=== PATIENT | male | born 1965 | race Caucasian/White ===

== ENCOUNTER 2020-06-27 12:49 | Outpatient (REF) | payer BC, SELFPAY ==
--- NOTE | 2020-06-27 | US_ITS ---
EXAMINATION: US RETROPERITONEAL LIMITED (RENAL ONLY) CLINICAL INFORMATION: Calculus of kidney. COMPARISON: Renal ultrasound 06/30/2019 and 12/22/2018. X-ray abdomen KUB 12/22/2018 and 04/18/2016. TECHNIQUE: Real-time imaging of the kidneys. FINDINGS: RIGHT KIDNEY: 11.5 x 2.5 x 6.2 cm (SAG x AP x TRV). The kidney is normal in size, contour, and echogenicity. Renal cortical thickness is normal. There is a 2 mm echogenic density with twinkle artifact in the lower pole suggestive of a stone. No focal parenchymal lesions or hydronephrosis. LEFT KIDNEY: 13.3 x 5.4 x 6.1 cm (SAG x AP x TRV). The kidney is normal in size, contour, and echogenicity. Renal cortical thickness is normal. There are 3 echogenic densities with twinkle artifact measuring 2 mm in the upper and lower pole suggestive of stones No focal parenchymal lesions or hydronephrosis. US/US renal BI IMPRESSION: Small bilateral renal stones.
== END 2020-06-27 12:50 | disposition home or self-care (01) ==
LOC: HO.HMGCX 12:49
PROVIDERS: PCP Pediatrics; Visit Provider Urology
DX: N20.0 Calculus of kidney (principal)
CPT/HCPCS: 76775

== ENCOUNTER → 2020-08-18 13:38 | Outpatient (BNVA) | payer BC, SELFPAY | PROVIDERS: PCP Pediatrics; Visit Provider Urology | DX: Z76.89 Persons encountering health services in other specified circumstances (principal) ==

== ENCOUNTER 2022-01-15 09:36 | Outpatient (REF) | payer BC, SELFPAY ==
--- NOTE | ~2022-01-15 | US_ITS ---
EXAMINATION: US RETROPERITONEAL LIMITED (RENAL ONLY) CLINICAL INFORMATION: Calculus of kidney. COMPARISON: US retroperitoneal limited (renal only) 06/27/2020 and 06/30/2019. XR abdomen KUB 12/22/2018 and 04/18/2016. TECHNIQUE: Real-time imaging of the kidneys. FINDINGS: RIGHT KIDNEY: 11.6 x 5.1 x 6.3 cm (SAG x AP x TRV). The kidney is normal in size, contour, and echogenicity. Renal cortical thickness is normal. There is a 3 mm stone in the midpole. No focal parenchymal lesions or hydronephrosis. LEFT KIDNEY: 12.2 x 5.2 x 5.6 cm (SAG x AP x TRV). The kidney is normal in size, contour, and echogenicity. Renal cortical thickness is normal. There are 3 stones measuring 2 to 3 mm in the upper and lower pole. There is a small 7 mm cyst in the midpole. No hydronephrosis. US/US renal BI IMPRESSION: Bilateral renal stones, left greater than right. Small left renal cyst.
== END 2022-01-15 09:37 | disposition home or self-care (01) ==
LOC: HO.US 09:36
PROVIDERS: Visit Provider Urology
DX: N20.0 Calculus of kidney (principal)
CPT/HCPCS: 76775

== ENCOUNTER → 2022-01-31 14:21 | Outpatient (BNVA) | payer BC, SELFPAY | PROVIDERS: Visit Provider Urology | DX: N20.0 Calculus of kidney (principal) | CPT/HCPCS: 51798 ==

== ENCOUNTER 2022-05-23 10:07 | Outpatient (REF) | payer BC, SELFPAY ==
--- NOTE | ~2022-05-23 | US_ITS ---
EXAMINATION: US RETROPERITONEAL LIMITED (RENAL ONLY) CLINICAL INFORMATION: Calculus of kidney. COMPARISON: Renal ultrasound 01/15/2022 and 06/27/2020. X-ray KUB 12/22/2018 and 04/18/2016. TECHNIQUE: Real-time imaging of the kidneys. FINDINGS: RIGHT KIDNEY: 10.9 x 4.8 x 5.6 cm (SAG x AP x TRV). The kidney is normal in size, contour, and echogenicity. Renal cortical thickness is normal. There are 2 stones measuring 4 mm and 3 x 6 mm in the upper pole. No focal parenchymal lesions or hydronephrosis. LEFT KIDNEY: 12.0 x 5.9 x 4.7 cm (SAG x AP x TRV). The kidney is normal in size, contour, and echogenicity. Renal cortical thickness is normal. There are 3 stones measuring 5 x 7 mm in the upper pole and 3 x 4 and 5 mm in the midpole. No focal parenchymal lesions or hydronephrosis. US/US renal BI IMPRESSION: Bilateral renal stones.
== END 2022-05-23 10:08 | disposition home or self-care (01) ==
LOC: HO.US 10:07
PROVIDERS: Visit Provider Urology
DX: N20.0 Calculus of kidney (principal)
CPT/HCPCS: 76775

== ENCOUNTER 2022-06-19 18:49 | Emergency (ER) | payer BC, SELFPAY ==
--- NOTE | ~2022-06-19 | US_ITS ---
EXAMINATION: US RETROPERITONEAL LIMITED (RENAL ONLY) CLINICAL INFORMATION: Left-sided flank pain. COMPARISON: 05/23/2022 TECHNIQUE: Ultrasound of both kidneys was performed FINDINGS: RIGHT KIDNEY: 11.2 x 5.2 x 5.1 cm (SAG x AP x TRV). The kidney is normal in size, contour, and echogenicity. Renal cortical thickness is normal. Multiple scattered renal calculi are seen as noted previously the largest in the upper pole measuring 3 mm. There is no hydronephrosis. No renal masses are seen. LEFT KIDNEY: 11.6 x 5.7 x 5.1 cm (SAG x AP x TRV). The kidney is normal in size, contour, and echogenicity. Renal cortical thickness is normal. Multiple scattered renal calculi are seen as noted previously the largest in the lower pole measuring 4 mm. There is no hydronephrosis. No renal masses are seen. Although the bladder was not examined, bilateral ureteral jets were incidentally visualized US/US renal BI IMPRESSION: Bilateral nonobstructing renal calculi.
[2022-06-19 19:20] VITALS: BP 158/94; PULSE 55; RESP 18; TEMP 36.4; O2SAT 96; BMI 25.5
--- NOTE | 2022-06-19 19:26 | ED_ITS ---
HPI - General Adult General Chief complaint: General Medical <Candelaria Jenkins MD - Last Filed: 06/20/22 11:13> Stated complaint: kidney stones <Candelaria Jenkins MD - Last Filed: 06/20/22 11:13> Time Seen by Provider: 06/19/22 19:41 <Candelaria Jenkins MD - Last Filed: 06/20/22 11:13> Source: patient <MAGDALENA Birmingham - Last Filed: 06/19/22 22:31> Mode of arrival: ambulatory <MAGDALENA Birmingham - Last Filed: 06/19/22 22:31> Limitations: no limitations <MAGDALENA Birmingham - Last Filed: 06/19/22 22:31> History of Present Illness HPI narrative: 56-year-old male with history of head and neck cancer 1 year ago status post chemo and radiation now in remission, history of bilateral kidney stones who follows Dr. Sarah presents to the ER for evaluation of sudden onset left- sided flank pain that started at 15:00 today. Patient reports the pain initially started in his left middle back and his radiated now to his left flank and left lower quadrant. He reports the pain is 10/10 it is associated with nausea and vomiting. He is dry heaving. He denies any dysuria or hematuria. He states the pain is similar to prior kidney stone episodes. No fever or chills. <MAGDALENA Birmingham - Last Filed: 06/19/22 22:31> MD complaint: Left-sided flank pain, vomiting. <MAGDALENA Birmingham - Last Filed: 06/19/22 22:31> Onset (ago): hour(s) (5) <MAGDALENA Birmingham - Last Filed: 06/19/22 22:31> Location: back and abdomen <MAGDALENA Birmingham Last Filed: 06/19/22 22:31> Radiation: abdomen <MAGDALENA Birmingham Last Filed: 06/19/22 22:31> Severity: severe <MAGDALENA Birmingham Last Filed: 06/19/22 22:31> Severity scale (1-10): 10 <MAGDALENA Birmingham Last Filed: 06/19/22 22:31> Quality: stabbing <MAGDALENA Birmingham - Last Filed: 06/19/22 22:31> Pain Consistency: constant <MAGDALENA Birmingham Last Filed: 06/19/22 22:31> Relieving factors: none <MAGDALENA Birmingham - Last Filed: 06/19/22 22:31> Exacerbating factors: none <MAGDALENA Birmingham - Last Filed: 06/19/22 22:31> Associated symptoms: nausea/vomiting and weakness <MAGDALENA Birmingham - Last Filed: 06/19/22 22:31> Treatments prior to arrival: none <MAGDALENA Birmingham Last Filed: 06/19/22 22:31> Related Data Home medications: Home Medications Medication Instructions Recorded Confirmed propranolol 60 mg capsule,24 60 mg PO DAILY 08/18/20 hr,extended release Previous Rx's Medication Instructions Recorded allopurinol 100 mg tablet 100 mg PO DAILY 90 days #90 tabs 01/31/22 indapamide 2.5 mg tablet 2.5 mg PO QAM 90 days #90 tabs 01/31/22 pyridoxine (vitamin B6) 100 mg 100 mg PO DAILY 90 days #90 tabs 01/31/22 tablet ibuprofen 600 mg tablet 600 mg PO Q8H PRN fever or pain 06/19/22 #14 tabs oxycodone 5 mg tablet 5 mg PO Q8H PRN severe pain (scale 06/19/22 score 7-10) #5 tabs prednisone 10 mg tablet 40 mg PO DAILY 5 days #20 tabs 06/19/22 tamsulosin 0.4 mg capsule (Flomax) 0.4 mg PO BEDTIME #14 caps 06/19/22 <Candelaria Jenkins MD - Last Filed: 06/20/22 11:13> Allergies/adverse reactions: Allergies Allergy/AdvReac Type Severity Reaction Status Date / Time No Known Allergies Allergy Verified 06/19/22 19:25 <Candelaria Jnekins MD - Last Filed: 06/20/22 11:13> Review of Systems Review of Systems: Constitutional: No Fever, No Chills ENT/Mouth: No sore throat, No Rhinorrhea, No Swallowing Difficulty Cardiovascular: No Chest Pain, No SOB, No Orthopnea, No Edema Respiratory: No Cough, No Sputum, No Wheezing, No dyspnea Gastrointestinal: +Nausea, +Vomiting, No Diarrhea, +abdominal Pain, No Hematochezia, No Melena Genitourinary: No Dysuria, No Urinary Frequency, No Hematuria Musculoskeletal: No joint pain, No Myalgias Skin: No Skin Lesions, No rash Neuro: No Weakness, No Numbness, No Dizziness, No Headache Psych: No Anxiety/Panic, No Depression Heme/Lymph: No Bruising, No Lymphadenopathy <MAGDALENA Birmingham - Last Filed: 06/19/22 22:31> [facility] Past Medical History Medical History: Medical History Enlarged prostate without lower urinary tract symptoms (luts) Erectile dysfunction GERD (gastroesophageal reflux disease) Headache, migraine History of kidney stones Hyperlipidemia Irritable bowel syndrome Lower urinary obstructive symptom Microscopic hematuria Nocturia <Candelaria Jenkins MD - Last Filed: 06/20/22 11:13> Surgical History: Surgical History History of surgery <Candelaria Jeknins MD - Last Filed: 06/20/22 11:13> Social History Social History: Social History Alcohol intake: never Smoked in Last 30 Days: No Use of substances other than those prescribed or required for medical reasons: No Advance Directives: No Advance Directives Information Provided: No <Candelaria Jenkins MD - Last Filed: 06/20/22 11:13> Physical Exam ED Vital Signs: Vital Signs - 24 hr 06/19/22 19:20 06/19/22 20:42 Temperature 97.5 F 98.2 F Pulse Rate 55 60 Respiratory Rate 18 14 Blood Pressure 158/94 H 138/82 Pulse Oximetry 96 98 Oxygen Delivery Method Room Air Room Air BMI result Body Mass Index 25.5 <Candelaria Jenkins MD - Last Filed: 06/20/22 11:13> Vital Signs - 24 hr 06/19/22 19:20 06/19/22 20:42 Temperature 97.5 F 98.2 F Pulse Rate 55 60 Respiratory Rate 18 14 Blood Pressure 158/94 H 138/82 Pulse Oximetry 96 98 Oxygen Delivery Method Room Air Room Air BMI result Body Mass Index 25.5 <MAGDALENA Birmingham - Last Filed: 06/19/22 22:31> Appearance: Alert. Oriented X3. Appears uncomfortable. Eyes: Pupils equal, round and reactive to light. ENT: Pharynx normal but with dry mucus membranes Neck: Normal inspection. Neck supple. CVS: Normal heart rate and rhythm. Pulses normal. Respiratory: No respiratory distress. Breath sounds normal. Abdomen: Soft with LLQ tenderness, normal +BS x4. CVA tenderness on the left Skin: Skin warm and dry. Normal skin color. Normal skin turgor. No rashes. Extremities: No lower extremity edema. Neuro: Oriented X 3. No motor deficit. No sensory deficit. <MAGDALENA Birmingham - Last Filed: 06/19/22 22:31> Course Reevaluation(s) Reevaluation #1: 56-year-old male with history kidney stones require prior surgical intervention for kidney stones removal, presented with left flank pain associated with nausea and vomiting. Renal ultrasound/UA/CBC/chemistry was ordered from triage pain medication and IV fluid also was ordered. <Candelaria Jenkins MD - Last Filed: 06/20/22 11:13> Time: 19:27 <Candelaria Jenkins MD - Last Filed: 06/20/22 11:13> Reevaluation #2: Renal ultrasound complete. Labs are pending. IV placed for pain control and fluids. Urinalysis still pending as well. Dispo pending results and impro vement. <MAGDALENA Birmingham - Last Filed: 06/19/22 22:31> Time: 20:38 <MAGDALENA Birmingham - Last Filed: 06/19/22 22:31> Reevaluation #3: Pain significantly improved. Renal ultrasound showing no hydro. Nonobstructing kidney stones noted. Urinalysis is pending. Anticipate he will be discharged home with pain medications for a stone he is likely able to pass on his own. <MAGDALENA Birmingham - Last Filed: 06/19/22 22:31> Time: 21:15 <MAGDALENA Birmingham - Last Filed: 06/19/22 22:31> Additional Reevaluation(s): UA is negative for infection. Pain is well controlled. He is stable for discharge home with pain control, Flomax and steroids. He will follow-up with Dr. Sarah. Kaylin for DC. Patient agrees with plan. <MAGDALENA Birmingham Filed: 06/19/22 22:31> Medications Administered Discontinued Medications Generic Name Dose Route Start Last Admin Trade Name Freq PRN Reason Stop Dose Admin Sodium Chloride 1,000 mls @ 999 mls/hr 06/19/22 19:25 06/19/22 21:44 Ns IV 06/19/22 20:25 Infused .Q1H1M ONE Infusion Ketorolac Tromethamine 30 mg 06/19/22 19:25 06/19/22 20:35 Ketorolac Tromethamine 30 Mg/Ml Vial IVPUSH 06/19/22 19:26 30 mg ONCE ONE Administration Morphine Sulfate 2 mg 06/19/22 19:25 06/19/22 20:36 Morphine Sulfate 2 Mg/Ml Cartridge IVPUSH 06/19/22 19:26 2 mg ONCE ONE Administration Protocol Ondansetron HCl 4 mg 06/19/22 19:25 06/19/22 20:35 Ondansetron Hcl 4 Mg/2 Ml Vial IVPUSH 06/19/22 19:26 4 mg ONCE ONE Administration <Candelaria Jenkins MD - Last Filed: 06/20/22 11:13> Medications Administered Discontinued Medications Generic Name Dose Route Start Last Admin Trade Name Freq PRN Reason Stop Dose Admin Sodium Chloride 1,000 mls @ 999 mls/hr 06/19/22 19:25 06/19/22 21:44 Ns IV 06/19/22 20:25 Infused .Q1H1M ONE Infusion Ketorolac Tromethamine 30 mg 06/19/22 19:25 06/19/22 20:35 Ketorolac Tromethamine 30 Mg/Ml Vial IVPUSH 06/19/22 19:26 30 mg ONCE ONE Administration Morphine Sulfate 2 mg 06/19/22 19:25 06/19/22 20:36 Morphine Sulfate 2 Mg/Ml Cartridge IVPUSH 06/19/22 19:26 2 mg ONCE ONE Administration Protocol Ondansetron HCl 4 mg 06/19/22 19:25 06/19/22 20:35 Ondansetron Hcl 4 Mg/2 Ml Vial IVPUSH 06/19/22 19:26 4 mg ONCE ONE Administration <MAGDALENA Birmingham - Last Filed: 06/19/22 22:31> Medical Decision Making Lab Data Result diagrams: : 06/19/22 20:34 06/19/22 20:34 <Candelaria Jenkins MD - Last Filed: 06/20/22 11:13> Labs: Lab Results 06/19/22 06/19/22 06/19/22 Range/Units 20:34 20:34 22:14 WBC 10.0 (4.8-10.8) X10*3/uL RBC 5.16 (4.60-5.80) X10*6/uL Hgb 15.8 (14.0-18.0) g/dl Hct 46.5 (42.0-52.0) % MCV 90.1 (80.0-98.0) fL MCH 30.6 (27.0-33.0) pg MCHC 34.0 (31.0-36.0) g/dl RDW 13.2 (11.0-16.0) % Plt Count 199 (160-400) X10*3/uL MPV 9.6 (9.4-12.4) fL Immature Gran % (Auto) 0.5 H (0.0-0.4) % Neut % (Auto) 87.0 H (45-73) % Lymph % (Auto) 6.8 L (20-40) % [place] % (Auto) 3.8 (2-11) % Eos % (Auto) 1.6 (0-4) % Baso % (Auto) 0.3 (0-2) % Lymph # (Auto) 0.7 L (1.2-4.9) X10*3/uL [place] # (Auto) 0.4 (0.1-1.2) X10*3/uL Eos # (Auto) 0.2 (0.0-0.4) X10*3/uL Baso # (Auto) 0.0 (0.0-0.2) X10*3/uL Abs Immat Gran (auto) 0.05 H (0.00-0.03) X10*3/uL Absolute Neuts (auto) 8.7 H (2.0-8.3) x10*3/uL Absolute Nucleated RBC 0.000 (0.0-0.012) X10*3/uL Nucleated RBC % (auto) 0.0 (0.0-0.2) /100WBC Sodium 140 (135-145) mmol/L Potassium 4.0 (3.3-5.1) mmol/L Chloride 100 (96-108) mmol/L Carbon Dioxide 29 (22-29) mmol/L Anion Gap 15 (12-20) BUN 21 H (9-16) mg/dL Creatinine 0.94 (0.5-1.4) mg/dL Estim Creat Clear Calc 86.7 Estimated GFR > 60 Random Glucose 97 (60-115) mg/dL Calcium 10.3 H (8.4-10.2) mg/dL Total Bilirubin 0.5 (0.0-1.0) mg/dL Direct Bilirubin 0.2 (0.0-0.5) mg/dL AST 36 (5-37) U/L ALT 47 H (0-40) U/L Alkaline Phosphatase 87 (39-117) U/L Total Protein 7.6 (6.5-8.0) g/dL Albumin 4.9 (3.5-5.0) g/dL Lipase 14 (8-78) U/L Urine Color Yellow Urine Appearance Clear Urine pH 5.5 (5.0-9.0) Ur Specific [place] 1.025 (1.005-1.025) Urine Protein Negative (Neg-Trace) mg/dL Urine Glucose (UA) Negative (Negative) mg/dL Urine Ketones 15 (Negative) mg/dL Urine Blood Negative (Negative) Urine Nitrite Negative (Negative) Ur Leukocyte Esterase Negative (Negative) <Candelaria Jenkins MD - Last Filed: 06/20/22 11:13> Lab Results 06/19/22 06/19/22 06/19/22 Range/Units 20:34 20:34 22:14 WBC 10.0 (4.8-10.8) X10*3/uL RBC 5.16 (4.60-5.80) X10*6/uL Hgb 15.8 (14.0-18.0) g/dl Hct 46.5 (42.0-52.0) % MCV 90.1 (80.0-98.0) fL MCH 30.6 (27.0-33.0) pg MCHC 34.0 (31.0-36.0) g/dl RDW 13.2 (11.0-16.0) % Plt Count 199 (160-400) X10*3/uL MPV 9.6 (9.4-12.4) fL Immature Gran % (Auto) 0.5 H (0.0-0.4) % Neut % (Auto) 87.0 H (45-73) % Lymph % (Auto) 6.8 L (20-40) % [place] % (Auto) 3.8 (2-11) % Eos % (Auto) 1.6 (0-4) % Baso % (Auto) 0.3 (0-2) % Lymph # (Auto) 0.7 L (1.2-4.9) X10*3/uL [place] # (Auto) 0.4 (0.1-1.2) X10*3/uL Eos # (Auto) 0.2 (0.0-0.4) X10*3/uL Baso # (Auto) 0.0 (0.0-0.2) X10*3/uL Abs Immat Gran (auto) 0.05 H (0.00-0.03) X10*3/uL Absolute Neuts (auto) 8.7 H (2.0-8.3) x10*3/uL Absolute Nucleated RBC 0.000 (0.0-0.012) X10*3/uL Nucleated RBC % (auto) 0.0 (0.0-0.2) /100WBC Sodium 140 (135-145) mmol/L Potassium 4.0 (3.3-5.1) mmol/L Chloride 100 (96-108) mmol/L Carbon Dioxide 29 (22-29) mmol/L Anion Gap 15 (12-20) BUN 21 H (9-16) mg/dL Creatinine 0.94 (0.5-1.4) mg/dL Estim Creat Clear Calc 86.7 Estimated GFR > 60 Random Glucose 97 (60-115) mg/dL Calcium 10.3 H (8.4-10.2) mg/dL Total Bilirubin 0.5 (0.0-1.0) mg/dL Direct Bilirubin 0.2 (0.0-0.5) mg/dL AST 36 (5-37) U/L ALT 47 H (0-40) U/L Alkaline Phosphatase 87 (39-117) U/L Total Protein 7.6 (6.5-8.0) g/dL Albumin 4.9 (3.5-5.0) g/dL Lipase 14 (8-78) U/L Urine Color Yellow Urine Appearance Clear Urine pH 5.5 (5.0-9.0) Ur Specific [place] 1.025 (1.005-1.025) Urine Protein Negative (Neg-Trace) mg/dL Urine Glucose (UA) Negative (Negative) mg/dL Urine Ketones 15 (Negative) mg/dL Urine Blood Negative (Negative) Urine Nitrite Negative (Negative) Ur Leukocyte Esterase Negative (Negative) <MAGDALENA Birmingham - Last Filed: 06/19/22 22:31> Critical Care Time Critical Care Time Critical Care Time: No <MAGDALENA Birmingham - Last Filed: 06/19/22 22:31> Discharge Plan Discharge Clinical Impression: Nephrolithiasis <Candelaria Jenkins MD - Last Filed: 06/20/22 11:13> Patient Disposition: Home, Self-Care <Candelaria Jenkins MD - Last Filed: 06/20/22 11:13> Instructions: Kidney Stones (ED), How to Strain Your Urine (ED) <Candelaria Jenkins MD - Last Filed: 06/20/22 11:13> Additional Instructions: Your ultrasound today showed bilateral nonobstructing renal calculi with normal size of your kidneys, no dilation which would indicate an obstructing kidney stone. You will most likely pass the stone on your own. Take the prescribed medications as directed. Follow-up with your urologist. If you develop new or worsening symptoms call 911 or come back to the ER for further evaluation. <Candelaria Jenkins MD - Last Filed: 06/20/22 11:13> Prescriptions: New prednisone 10 mg tablet 40 mg PO DAILY 5 Days Qty: 20 0RF ibuprofen 600 mg tablet 600 mg PO Q8H PRN (Reason: fever or pain) Qty: 14 0RF tamsulosin [Flomax] 0.4 mg capsule 0.4 mg PO BEDTIME Qty: 14 0RF oxycodone 5 mg tablet 5 mg PO Q8H PRN (Reason: severe pain (scale score 7-10)) Qty: 5 0RF Rx Instructions: Partial Fill upon patient request. No Action allopurinol 100 mg tablet 100 mg PO DAILY 90 Days Qty: 90 1RF indapamide 2.5 mg tablet 2.5 mg PO QAM 90 Days Qty: 90 2RF pyridoxine (vitamin B6) 100 mg tablet 100 mg PO DAILY 90 Days Qty: 90 1RF propranolol 60 mg capsule,extended release 24 hr 60 mg PO DAILY <Candelaria Jenkins MD - Last Filed: 06/20/22 11:13> Referrals: [facility] Urology [facility] [Provider Group] <Candelaria Jenkins MD - Last Filed: 06/20/22 11:13> Interventions: ED Discharge Assessment Last Done: 06/19/22 22:53 <Candelaria Jenkins MD - Last Filed: 06/20/22 11:13> Discharge Date/Time: 06/19/22 22:54 <Candelaria Jenkins MD - Last Filed: 06/20/22 11:13>
[2022-06-19] MEDS: Ketorolac Tromethamine 30 MG/ML VIAL IVPUSH (20:35)
[2022-06-19] MEDS: ondansetron HCL 4 MG/2 ML VIAL IVPUSH (20:35)
[2022-06-19] MEDS: Morphine Sulfate 2 MG/ML CARTRIDGE IVPUSH (20:36)
[2022-06-19] MEDS: 0.9 % Sodium Chloride 1,000 ML 999 ML IV (20:39)
--- NOTE | 2022-06-19 20:40 | PC.NURSE ---
Pt. on telemetry monitor at this time. Medicated per MAR
[2022-06-19 20:41] LABS: MANUAL DIFF FLAG NO
[2022-06-19 20:42] VITALS: BP 138/82; PULSE 60; RESP 14; TEMP 36.8; O2SAT 98
[2022-06-19 20:42] LABS: Basophils Percent Auto 0.3 % (0-2); Eosinophils Absolute Auto 0.2 X10*3/uL (0.0-0.4); Eosinophils Percent Auto 1.6 % (0-4); Hematocrit 46.5 % (42.0-52.0); Hemoglobin 15.8 g/dl (14.0-18.0); Imm Gran Abs Auto 0.05 X10*3/uL (0.00-0.03); Imm Gran Pct Auto 0.5 % (0.0-0.4); Lymphocytes Absolute Auto 0.7 X10*3/uL (1.2-4.9); Lymphocytes Percent Auto 6.8 % (20-40); Mean Corpuscular Hemoglobin 30.6 pg (27.0-33.0); Mean Corpuscular Volume 90.1 fL (80.0-98.0); Mean Platelet Volume 9.6 fL (9.4-12.4); Monocytes Absolute Auto 0.4 X10*3/uL (0.1-1.2); Monocytes Percent Auto 3.8 % (2-11); Neutrophils Absolute Auto 8.7 x10*3/uL (2.0-8.3); Platelet Count 199 X10*3/uL (160-400); Red Blood Count 5.16 X10*6/uL (4.60-5.80); Red Cell Distribution Width 13.2 % (11.0-16.0)
[2022-06-19 20:59] LABS: Alanine Aminotransferase 47 U/L (0-40); Albumin Level 4.9 g/dL (3.5-5.0); Alkaline Phosphatase 87 U/L (39-117); Anion Gap 15 (12-20); Aspartate Amino Transferase 36 U/L (5-37); Bilirubin Direct 0.2 mg/dL (0.0-0.5); Bilirubin Total 0.5 mg/dL (0.0-1.0); Blood Urea Nitrogen 21 mg/dL (9-16); Calcium 10.3 mg/dL (8.4-10.2); Carbon Dioxide 29 mmol/L (22-29); Chloride 100 mmol/L (96-108); Creatinine Clr Calc Pharmacy 86.7; Estimated Glomerular Filt Rate > 60; Glucose Random 97 mg/dL (60-115); Lipase 14 U/L (8-78); Sodium 140 mmol/L (135-145); Total Protein 7.6 g/dL (6.5-8.0)
[2022-06-19 22:26] LABS: Appearance Urine Clear; Color Urine Yellow; Glucose Urine UA Negative (Negative); Leukocyte Esterase Urine Negative (Negative); Nitrite Urine Negative (Negative); PH 5.5 (5.0-9.0); Specific Gravity - Urine 1.025 (1.005-1.025); Urine Blood Negative (Negative); Urine Ketones 15 mg/dL (Negative); Urine Protein Negative (Neg-Trace)
--- NOTE | 2022-06-19 22:53 | PC.NURSE ---
Pt a&o, no sob or chest pain. IV removed. Reviewed discharge instructions with patients. Patient verbalized understanding.
== END 2022-06-19 22:54 | disposition home or self-care (01) ==
PROVIDERS: Emergency Medicine; Emergency Provider Internal Medicine
DX: N20.0 Calculus of kidney (principal); M54.2 Cervicalgia; R51.9 Headache, unspecified; R10.32 Left lower quadrant pain; R11.2 Nausea with vomiting, unspecified; Z79.899 Other long term (current) drug therapy
CPT/HCPCS: 36415; 76775; 80048; 80076; 81003; 83690; 85025; 96361; 96374; 96375; 99284; J1885; J2270; J2405

== ENCOUNTER → 2022-08-10 15:42 | Outpatient (BNVA) | payer BC, SELFPAY | PROVIDERS: Visit Provider Urology | DX: R35.1 Nocturia (principal) ==

== ENCOUNTER → 2022-10-16 09:50 | Outpatient (BNVA) | payer BC, SELFPAY | PROVIDERS: Visit Provider Urology | DX: Z13.89 Encounter for screening for other disorder (principal) ==

== ENCOUNTER 2023-04-10 07:29 | Outpatient (REF) | payer MEDICAID, SELFPAY ==
--- NOTE | ~2023-04-10 | US_ITS ---
EXAMINATION: US RETROPERITONEAL LIMITED (RENAL ONLY) CLINICAL INFORMATION: Calculus of kidney. COMPARISON: Renal ultrasound 06/19/2022 and 05/23/2022. X-ray KUB 12/22/2018 and 04/18/2016. TECHNIQUE: Real-time imaging of the kidneys. FINDINGS: RIGHT KIDNEY: 10.9 x 5.5 x 5.8 cm (SAG x AP x TRV). The kidney is normal in size, contour, and echogenicity. Renal cortical thickness is normal. No focal parenchymal lesions or hydronephrosis. At the interpolar aspect, a 2 mm nonobstructing calculus is seen, with twinkle artifact. At the lower pole, 2 mm and 2 mm nonobstructing calculi are seen, with twinkle artifact. LEFT KIDNEY: 14.4 x 5.8 x 4.8 cm (SAG x AP x TRV). The kidney is normal in size, contour, and echogenicity. Renal cortical thickness is normal. No hydronephrosis. At the interpolar aspect, a 3 mm nonobstructing calculus is seen, with twinkle artifact. At the lower pole, a 2 mm nonobstructing calculus is seen, with twinkle artifact. At the interpolar aspect, 1.0 cm, 5 mm, 9 mm and 9 mm benign, simple cysts are seen. These require no imaging follow-up. US/US renal BI IMPRESSION: There are small nonobstructing bilateral renal calculi, as detailed. No hydronephrosis is seen bilaterally.
== END 2023-04-10 07:30 | disposition home or self-care (01) ==
LOC: HO.US 07:29
PROVIDERS: Visit Provider Urology
DX: N20.0 Calculus of kidney (principal)
CPT/HCPCS: 76775

== ENCOUNTER 2023-04-25 13:37 | Outpatient (AMB) | payer OTHER, SELFPAY ==
--- NOTE | 2023-04-25 13:39 | A.OFFVIS_ITS ---
Intake Intake Visit Reasons: 6M US(set) Intake Note: Patient presents today for a follow-up on Nephrolithiasis/US Results Completed on 04/10/2023: Meds- Tamsulosin & Vitamin B6 Allergies to Antibiotic- No Known Allergies Blood Thinner- None PVR- 41mL Allergies No Known Allergies Allergy (Verified 04/25/23 14:22) Medication List - Last Reconciled 04/25/23 by Lupe Montez MD allopurinol 100 mg PO DAILY 90 days ibuprofen 600 mg PO Q8H PRN indapamide 2.5 mg PO QAM 90 days nystatin mL PO oxycodone 5 mg PO Q8H PRN pentoxifylline ER 400 mg PO BID 90 days prednisone 40 mg (4 x 10 mg) PO DAILY 5 days propranolol ER 60 mg PO DAILY pyridoxine (vitamin B6) 50 mg PO DAILY 90 days vitamin E (dl, acetate) 450 mg PO DAILY 90 days HPI HPI Comments History of Present Illness Details Nomi is a 57-year-old male who presents today to the office for a follow-up. 04/25/2023? He is followed today for US. He has seen Pierce Santiago for kidney stones. The patient was advised to follow-up in 6 months with renal US during that time. He is on Indapamide 2.5 mg, vitamin B6, and allopurinol 100 mg. He is not taking pentoxifylline 400 mg, and tamsulosin 0.4 mg. I reviewed the renal US results from 04/10/2023 revealed that there are small nonobstructing bilateral renal calculi, as detailed. No hydronephrosis is seen bilaterally. Evaluation today?UA? leukocytes: negative; blood: negative; bladder scan PVR: 41 mL. Plan: Continue allopurinol 100 mg daily. Continue indapamide 2.5 mg daily. Continue vitamin B6 50 mg daily. Follow-up with OPERATIONS SCHEDULER in 6 weeks to discuss the PSA and electrolytes results. Follow-up in 1 year with renal US. [facility] Medical History Headache, migraine History of kidney stones Erectile dysfunction Irritable bowel syndrome Hyperlipidemia GERD (gastroesophageal reflux disease) Microscopic hematuria Enlarged prostate without lower urinary tract symptoms (luts) Nocturia Lower urinary obstructive symptom Surgical History History of surgery Social History Alcohol intake: never Review of Systems Const All systems reviewed & are unremarkable except as noted in HPI and below Reports no additional complaints Eyes Reports no additional complaints ENT Reports no additional complaints Card Denies dyspnea Resp Denies cough and Denies dyspnea GI Reports no additional complaints Musc Reports no additional complaints Skin/Breast Denies rash and Denies unusual bruising Neuro Reports no additional complaints Psych Reports no additional complaints Endo Reports no additional complaints Jose Ramon/Lymph Reports no additional complaints Aller/Immun Reports no additional complaints Physical Exam Const General: healthy appearing, no acute distress and well developed Orientation/consciousness: patient oriented x3 HEENT Head: Yes normocephalic and Yes atraumatic Eyes Conjunctivae: conjunctivae normal Neck Neck: Yes normal visual inspection Chest Chest palpation & inspection: normal inspection of the chest Resp Effort & Inspection: normal respiratory effort Cardio Rate: regular rate GI Inspection: Yes normal to inspection Palpation (GI): Soft to palpation Skin General skin exam: no rashes or lesions noted Neuro General: patient oriented x3 Extrem General: No pedal edema Psych Appearance: grossly normal Affect: normal affect Office Procedures Post Void Residual Post Residual Void Post Void Residual (PVR): 41 [id number] Void Residual by ultrasound Results AMB Urinalysis, Automated UA Leukoctes 0 Alejandra/uL Last Edit by GABBI Lopez on 04/25/23 14:21 UA Nitrite Negative Last Edit by GABBI Lopez on 04/25/23 14:21 UA Urobilinogen 1 mg/dL Last Edit by GABBI Lopez on 04/25/23 14:21 UA Protein 15 mg/dL Last Edit by GABBI Lopez on 04/25/23 14:21 UA pH 5.5 Last Edit by GABBI Lopez on 04/25/23 14:21 UA Blood 0 Enrique/uL Last Edit by GABBI Lopez on 04/25/23 14:21 UA Specific Dougherty 1.025 Last Edit by GABBI Lopez on 04/25/23 14: 21 UA Ketone Negative Last Edit by GABBI Lopez on 04/25/23 14:21 UA Bilirubin 0 mg/dL Last Edit by GABBI Lopez on 04/25/23 14:21 UA Glucose 0 mg/dL Last Edit by GABBI Lopez on 04/25/23 14:21 Results Reviewed Results Reviewed: Laboratory Last Values Urine pH (Auto) 5.5 04/25/23 14:19 Specific Dougherty (Auto) 1.025 04/25/23 14:19 Urine Protein (Auto) 15 mg/dL 04/25/23 14:19 Glucose (UA)(Auto) 0 mg/dL 04/25/23 14:19 Urine Ketones (Auto) Negative 04/25/23 14:19 Urine Blood (Auto) 0 Enrique/uL 04/25/23 14:19 Urine Nitrite (Auto) Negative 04/25/23 14:19 Urine Bilirubin (Auto) 0 mg/dL 04/25/23 14:19 Urine Urobilinogen (Auto) 1 mg/dL 04/25/23 14:19 Leukocyte Esterase (Auto) 0 Alejandra/uL 04/25/23 14:19 Date of Service: 04/10/23 EXAMINATION:? US RETROPERITONEAL LIMITED (RENAL ONLY) CLINICAL INFORMATION: Calculus of kidney. COMPARISON:? Renal ultrasound 06/19/2022 and 05/23/2022. X-ray KUB 12/22/2018 and 04/18/2016. FINDINGS: RIGHT KIDNEY: 10.9 x 5.5 x 5.8 cm (SAG x AP x TRV). The kidney is normal in size, contour, and echogenicity. Renal cortical thickness is normal. No focal parenchymal lesions or hydronephrosis. At the interpolar aspect, a 2 mm nonobstructing calculus is seen, with twinkle artifact. At the lower pole, 2 mm and 2 mm nonobstructing calculi are seen, with twinkle artifact. LEFT KIDNEY: 14.4 x 5.8 x 4.8 cm (SAG x AP x TRV). The kidney is normal in size, contour, and echogenicity. Renal cortical thickness is normal. No hydronephrosis. At the interpolar aspect, a 3 mm nonobstructing calculus is seen, with twinkle artifact. At the lower pole, a 2 mm nonobstructing calculus is seen, with twinkle artifact. At the interpolar aspect, 1.0 cm, 5 mm, 9 mm and 9 mm benign, simple cysts are seen. These require no imaging follow-up. IMPRESSION:? There are small nonobstructing bilateral renal calculi, as detailed. No hydronephrosis is seen bilaterally. Assessment & Plan Assessment & Plan (1) Nephrolithiasis: Code(s): N20.0 - Calculus of kidney (2) Screening PSA (prostate specific antigen): Code(s): Z12.5 - Encounter for screening for malignant neoplasm of prostate Plan Continue allopurinol 100 mg daily. Continue indapamide 2.5 mg daily. Continue vitamin B6 50 mg daily. Follow-up with OPERATIONS SCHEDULER in 6 weeks to discuss the PSA and electrolytes results.? Follow-up in 1 year with renal US. Orders: Orders AMB Post Void Residual by ultrasound Today N39.8 - Other specified disorders of urinary system US renal BI 10 Months N20.0 - Calculus of kidney AMB Urinalysis Automated Today Z13.9 - Encounter for screening, unspecified Electrolytes Today N20.0 - Calculus of kidney PSA,Total (Free>4and<10) Today Z12.5 - Encounter for screening for malignant neoplasm of prostate Medications: Refilled indapamide 2.5 mg PO QAM 90 tabs 1RF 90 days N20.0 - Calculus of kidney allopurinol 100 mg PO DAILY 90 tabs 1RF 90 days N20.0 - Calculus of kidney pyridoxine (vitamin B6) 50 mg PO DAILY 90 tabs 1RF 90 days N20.0 - Calculus of kidney Discontinued tamsulosin (Flomax) Discontinued Reason: Patient no longer taking 0.4 mg PO BEDTIME 14 caps 0RF Patient Instructions: The patient had an opportunity to ask questions regarding treatment plan. All questions were answered. Imaging, Laboratory studies and physical exam results were discussed and reviewed in detail. No major barriers to understanding were identified. The patient expressed understanding and agreement with the above treatment plan.? ? ? The patient is aware they should contact our office by phone for worsening of their current condition or the appearance of new symptoms. Compliance is encouraged with any medications and followup testing that is ordered.? ? ? It is a privilege to be allowed the opportunity to participate in the urologic care of your patient. If you have any questions or concerns regarding treatment for the above conditions please do not hesitate to contact me. The office telephone contact is [phone].? ? ? This note is constructed in part using voice recognition software. While every effort has been made to ensure accuracy cook chief errors may have been included.? ? ? Yours sincerely,? ? ? Lupe Montez MD? ? Coding Level of Care Code Est Pt Level 4 (18306) Diagnoses Nephrolithiasis N20.0 Screening PSA (prostate specific antigen) Z12.5 CPT Codes Post Residual Void - PVR CPT Code: 18300-Yfvo Void Residual by ultrasound ([id number])
== END 2023-04-25 15:09 | disposition home or self-care (01) ==
PROVIDERS: Visit Provider Urology
DX: N20.0 Calculus of kidney (principal); Z12.5 Encounter for screening for malignant neoplasm of prostate
CPT/HCPCS: 99214

== ENCOUNTER → 2023-04-25 13:37 | Outpatient (BNVA) | payer MEDICAID, SELFPAY | PROVIDERS: Visit Provider Urology | DX: N20.0 Calculus of kidney (principal) | CPT/HCPCS: 51798; 81003 ==

== ENCOUNTER 2023-06-04 07:59 | Outpatient (REF) | payer MEDICAID, SELFPAY ==
[2023-06-04 08:53] LABS: Anion Gap 14 (12-20); Carbon Dioxide 29 mmol/L (22-29); Chloride 103 mmol/L (96-108); Potassium 3.7 mmol/L (3.3-5.1); Sodium 142 mmol/L (135-145)
[2023-06-04 09:29] LABS: PSA,Total (Free>4and<10) 0.95 ng/mL (0.00-4.00)
== END 2023-06-04 08:00 | disposition home or self-care (01) ==
LOC: HO.LAB 07:59
PROVIDERS: Visit Provider Urology
DX: Z12.5 Encounter for screening for malignant neoplasm of prostate (principal); N20.0 Calculus of kidney
CPT/HCPCS: 36415; 80051; 84153

== ENCOUNTER 2023-06-26 13:14 | Outpatient (AMB) | payer OTHER, SELFPAY ==
--- NOTE | 2023-06-26 13:09 | A.OFFVIS_ITS ---
Intake Intake Visit Reasons: 6w/PSA/electrolytes Intake Note: Patient presents today for a follow-up PSA/electrolytes Urology Medications: Tamsulosin & Vitamin B6 Blood Thinner: None Lithograph Designer Required: No Allergies No Known Allergies Allergy (Verified 06/28/23 20:35) Medication List - Last Reconciled 06/28/23 by CHARY Blue allopurinol 100 mg PO DAILY 90 days ibuprofen 600 mg PO Q8H PRN indapamide 2.5 mg PO QAM 90 days propranolol ER 60 mg PO DAILY pyridoxine (vitamin B6) 50 mg PO DAILY 90 days HPI HPI Comments History of Present Illness Details Nomi is a pleasant 57-year-old male patient. He has a past medical history of migraines, nephrolithiasis, erectile dysfunction, irritable bowel syndrome, hyperlipidemia, GERD, nocturia, and throat/tongue cancer. He is being followed up on today via telehealth for his longstanding history of nephrolithiasis. In discussion with the patient today reports to be doing and feeling well. Of note, patient was seen approximately [address] Narayan at which time recommendations were made for metabolic lab workup and PSA. These results reviewed with the patient and his significant other today. Labs 05/27... Sodium--142 Potassium--3.7 Chloride--103 Carbon dioxide--29 Anion gap--14 PSA--1.0 When asked he reports compliance with indapamide, vitamin B6, and allopurinol daily as prescribed. Previous workup has included a renal ultrasound noting small nonobstructing bilateral renal calculi. No hydronephrosis is seen bilaterally. When asked he denies any bothersome urinary issues or concerns at this time. He denies urinary urgency, urinary frequency, incontinence, nocturia, hematuria, dysuria, foul smelling urine, changes to urinary stream, flank pain, fever, and or chills. He is happy with his current voiding parameters. When asked he reports to not be drinking plenty of water or fluid daily as he has imparied taste due to history of head and neck radiation. Discussed at length importance of doing so in relation to nephrolithiasis as well as for overall health and well-being. [facility] Medical History Headache, migraine History of kidney stones Erectile dysfunction Irritable bowel syndrome Hyperlipidemia GERD (gastroesophageal reflux disease) Microscopic hematuria Enlarged prostate without lower urinary tract symptoms (luts) Nocturia Lower urinary obstructive symptom Surgical History History of surgery Alcohol intake: never Review of Systems Const Reports as per HPI Eyes Reports no additional complaints ENT Reports as per HPI Card Reports as per HPI Resp Reports no additional complaints GI Reports as per HPI Reports as per HPI Musc Reports no additional complaints Neuro Reports no additional complaints Psych Reports no additional complaints Endo Reports no additional complaints Physical Exam Const General: cooperative Orientation/consciousness: patient oriented x3 Resp Effort & Inspection: able to speak in complete sentences Neuro General: patient oriented x3 Psych Mental Status: mental status grossly normal Speech and movement: Clear speech present Affect: normal affect Attitude: cooperative Thought process: Normal thought process present Thought content: Normal thought content present Insight: Fair insight present (Psych) Judgement: Fair judgement present (Psych) Assessment & Plan Assessment & Plan (1) Nephrolithiasis: Code(s): N20.0 - Calculus of kidney Plan Recent labs reviewed with the patient today; as noted above. Patient denies any bothersome urinary issues or concerns at this time. Patient reports be happy with current voiding parameters. Continue indapamide, vitamin B6, and allopurinol as discussed and prescribed. Discussed at length potential causes of nephrolithiasis. Discussed importance of drinking plenty of water daily Discussed adding 1 oz of lemon juice to water daily. Follow-up as planned in April with imaging to be completed prior; or sooner with any issues, concerns, and or questions. Patient Instructions: The patient had an opportunity to ask questions regarding the treatment plan. All questions were answered. Physical exam, labs, and imaging were discussed and reviewed in detail. As well as risks, benefits, and discussion of treatment choices. No major barriers to understanding were identified. The patient expressed understanding and agreement with the above treatment plan. The patient was made aware they should contact our office by phone for worsening of their current condition, the appearance of new symptoms, or with any questions or concerns. Compliance is encouraged with any medications and follow up testing that is ordered. It is a privilege to be allowed the opportunity to participate in? your urological care.? Again, if you have any questions or concerns If you have any questions or concerns please do not hesitate to contact me. The office is [phone]. This note is constructed using voice recognition software. While every effort has been made to ensure accuracy laundry agent errors may have been included. Yours sincerely, CHARY Blue Telehealth Telehealth Location of provider rendering services: practice address Location of patient: address on file Patient Identification confirmed using: Name, : Yes Telehealth method: voice only Patient verbally consented to treatment: Yes Patient verbally consented to billing insurance company: Yes Patient informed of any privacy concerns related to visit: Yes Minutes spent on Phone/Video with Pt.: 15 Coding Level of Care Code Tele Est Pt Level 3 (44765) Diagnoses Nephrolithiasis N20.0
== END 2023-06-26 13:20 ==
LOC: HO.HUSH 13:14
PROVIDERS: Visit Provider Nurse Practitioner Family
DX: N20.0 Calculus of kidney (principal)
CPT/HCPCS: 99213

== ENCOUNTER → 2023-06-26 13:14 | Outpatient (BNVA) | payer OTHER, SELFPAY | PROVIDERS: Visit Provider Nurse Practitioner Family ==

== ENCOUNTER 2024-02-24 07:34 | Outpatient (REF) | payer MEDICAID, SELFPAY ==
--- NOTE | ~2024-02-24 | US_ITS ---
EXAMINATION: US RETROPERITONEAL LIMITED (RENAL ONLY) CLINICAL INFORMATION: Calculus of kidney. COMPARISON: Renal ultrasound 04/10/2023 and 06/19/2022. X-ray abdomen KUB 12/22/2018 and 04/18/2016. TECHNIQUE: Real-time imaging of the kidneys. FINDINGS: RIGHT KIDNEY: 10.2 x 6.5 x 5.0 cm (SAG x AP x TRV). The kidney is normal in size, contour, and echogenicity. Renal cortical thickness is normal. There is a 2 mm echogenic focus at the lower pole consistent with a nonobstructing stone. There are multiple other echogenic areas with twinkle artifact, likely vascular calcifications or possibly small nonobstructing calculi. No focal parenchymal lesions or hydronephrosis. LEFT KIDNEY: 12.0 x 5.5 x 4.9 cm (SAG x AP x TRV). The kidney is normal in size, contour, and echogenicity. Renal cortical thickness is normal. There is a 2 mm echogenic focus seen in the lower pole of the left kidney consistent with a nonobstructing calculus. Other echogenic foci are present as well which either represent vascular artifacts or small nonobstructing calculi. No hydronephrosis. Multiple benign Bosniak class I renal cysts are noted, the largest measuring only 1.0 cm in the mid kidney which require no additional imaging or follow-up. No solid renal masses are seen. US/US renal BI IMPRESSION: Bilateral nonobstructing renal calculi.
== END 2024-02-24 07:35 | disposition home or self-care (01) ==
LOC: HO.US 07:34
PROVIDERS: Visit Provider Urology
DX: N20.0 Calculus of kidney (principal)
CPT/HCPCS: 76775

== ENCOUNTER 2024-04-21 11:36 | Outpatient (AMB) | payer OTHER, SELFPAY ==
--- NOTE | 2024-04-21 11:41 | MHC.OFFVIS ---
Intake Visit Reasons: 1Y Follow Up-Ultrasound(set) Intake Note: Patient is Present for Telephone Follow Up Ultrasound Urology Med: Vitamin B6 Antibiotic Allergy: None Blood Thinner:None Last PSA: 05/2023 0.95 Batch Plant Supervisor Required: No Accompanied by: Self / Same As Patient Allergies No Known Allergies Allergy (Verified 06/28/23 20:35) Medication List - Last Reconciled 04/21/24 by Pierce Sarah MD allopurinol 100 mg PO DAILY 90 days bupropion HCl XL 150 mg PO DAILY ibuprofen 600 mg PO Q8H PRN indapamide 2.5 mg PO QAM 90 days propranolol ER 60 mg PO DAILY pyridoxine (vitamin B6) 50 mg PO DAILY 90 days trazodone 25 mg PO BEDTIME PRN HPI Comments Details: Nomi Dubois is very pleasant male. He is a patient of Dr. Zarate. He is seen for the following urologic conditions - lower urinary tract symptoms - hematuria - Nephrolithiasis Telemedicine Evaluation 15 min Consultation [employer] Historically has been on combination allopurinol, indapamide and vitamin B6 This appears to have significantly reduced his stone production Prior 24 hour urine results Good volume, high citrate, normal calcium with medication, mild elevated oxalate, high sodium PSA 05/27 0.9 Nephrolithiasis/Urolithiasis: Recovering from head and neck radiation changes to taste particularly water which taste metallic Continues with indapamide 2.5 mg and vitamin B6 with allopurinol They are here for further evaluation of nephrolithiasis - Stones since 2010 - multiple occurrences - no stone seen on current imaging. Continue medications Repeat imaging in 6 months. If stable can move 12 months. Urolithiasis was diagnosed 2010 The patient previously had kidney stones whose composition w calcium stones. Laboratory investigations include Base line serum evaluation, Normocalcemia (9.0), Normal PTH, Normal uric acid 12/21 , Normocalcemia (9.0), Normal PTH, Normal uric acid. 24 Hour urine evaluation Mar 2016 , Good Volume > 2.00 L, Hypercalciuria (> 200mg), High Citrate - 09/27 Good volume, high citrate, normal calcium with medication, mild elevated oxalate, high sodium Prior treatment(s) include - ureteroscopy, observation 07/21 , medical management, with allopurinol, with thiazides 07/22 2.5 IND, 100mg Vit B6 6/19 continue medications Prior imaging includes a renal ultrasound December 2015 , showing radiodense stone(s), bilaterally, < 5 mm, on the right, lower pole, mid pole, < 5 mm, on the left, mid pole - Mar 2016 , a renal ultrasound small stone on right side. Not seen on KUB. - 07/21 , a renal ultrasound, showing no evidence of stones 07/22 , a renal ultrasound, showing radiodense stone(s), bilaterally 3 x 4mm stones each side 01/21 , a renal ultrasound, , showing no evidence of stones 07/23 , a renal ultrasound no evidence of stones. - 07/24 renal ultrasound bilateral twinkle artifact, 07/26 renal ultrasound bilateral small stones, - 02/25 renal ultrasound small bilateral echogenic foci UA today shows 6.0-7.0, high specific gravity suggestive of relative dehydration. Current therapeutic plan will be continue with medical therapy PFS Medical History Headache, migraine History of kidney stones Erectile dysfunction Irritable bowel syndrome Hyperlipidemia GERD (gastroesophageal reflux disease) Microscopic hematuria Enlarged prostate without lower urinary tract symptoms (luts) Nocturia Lower urinary obstructive symptom Surgical History History of surgery Social History Alcohol intake: never Review of Systems Const All systems reviewed & are unremarkable except as noted in HPI and below Reports no additional complaints Resp Reports no additional complaints GI Reports no additional complaints Reports as per HPI Musc Reports no additional complaints Physical Exam Telemedicine evaluation Appropriate responses Regular breathing rate and rhythm HEENT Head: Yes normal to inspection Ears: hearing grossly normal bilaterally Eyes General: appearance normal, both eyes and all related structures Neck Neck: Yes normal visual inspection Chest Chest palpation & inspection: normal inspection of the chest Resp Effort & Inspection: normal respiratory effort and able to speak in complete sentences Telehealth Telehealth Telehealth Platform: [facility] Location of provider rendering services: practice address Location of patient: address on file Patient Identification confirmed using: Name, : Yes Telehealth method: video Patient verbally consented to treatment: Yes Patient verbally consented to billing insurance company: Yes Patient informed of any privacy concerns related to visit: Yes Minutes spent on Phone/Video with Pt.: 15 Assessment & Plan Assessment & Plan (1) Erectile dysfunction: Code(s): N52.9 - Male erectile dysfunction, unspecified Category: Medical (2) Nephrolithiasis: Code(s): N20.0 - Calculus of kidney Category: Medical Plan Twelve month follow-up imaging Orders: Orders US renal BI 12 Months N20.0 - Calculus of kidney Medications: Refilled allopurinol 100 mg PO DAILY 90 days 90 tabs 3RF N20.0 - Calculus of kidney indapamide 2.5 mg PO QAM 90 days 90 tabs 3RF N20.0 - Calculus of kidney pyridoxine (vitamin B6) 50 mg PO DAILY 90 days 90 tabs 3RF N20.0 - Calculus of kidney Patient Instructions: Imaging studies, laboratory and physical exam results were discussed and reviewed in detail. No major barriers to patient understanding were identified. An opportunity to ask questions regarding the treatment plan was provided. All questions were answered. The patient expressed understanding and agreement with the above treatment plan. The patient is aware they should contact our office by phone for worsening of their current condition or the appearance of new urologic symptoms. Compliance is encouraged with any medications and followup testing that is ordered. It is a privilege to participate in the urologic care of your patient. If you have any questions or concerns regarding treatment for the above conditions, or other urologic issues, please do not hesitate to contact me. The office telephone contact is [phone]. This note is constructed using voice recognition software. While every effort has been made to ensure accuracy it consulting director errors may have been included. Yours sincerely, Dr Pierce Sarah MD, [facility] - Urology Providers of Expert, Compassionate Care for the Genitourinary System Coding Level of Care Code Tele Est Pt Level 3 (86067) Diagnoses Erectile dysfunction N52.9 Nephrolithiasis N20.0
== END 2024-04-21 12:01 | disposition home or self-care (01) ==
LOC: HO.HUSH 11:36
PROVIDERS: Visit Provider Urology
DX: N52.9 Male erectile dysfunction, unspecified (principal); N20.0 Calculus of kidney
CPT/HCPCS: 99213

== ENCOUNTER → 2024-04-21 11:36 | Outpatient (BNVA) | payer MEDICAID, SELFPAY | PROVIDERS: Visit Provider Urology ==

== ENCOUNTER 2025-06-04 07:52 | Outpatient (REF) | payer OTHER, SELFPAY ==
--- NOTE | ~2025-06-04 | US_ITS ---
CLINICAL HISTORY: N20.0 - Calculus of kidney US renal with Color Doppler Comparison: US/SR - US KIDNEY BILATERAL - 02/24/24 07:47 EDT US/SR - US KIDNEY BILATERAL - 04/10/23 07:52 EDT US/SR - US KIDNEY BILATERAL - 06/19/22 19:40 EST Findings: Right kidney normal size and echotexture, 11.1 cm length. No hydronephrosis. Normal color flow. Nonobstructing caliceal stone midpole measuring 4 mm previously measuring 2 mm. Additional vascular reflectors rather than caliceal stones in the kidney. Left kidney normal size and echotexture, 12.4 cm length. No hydronephrosis. Normal color flow. Nonobstructing caliceal stone lower pole measuring 4 mm previously measuring 2 mm. Renal cortical cyst lower pole measuring 11 x 10 x 17 mm previously measuring 10 x 8 x 9 mm with mild complexity correlate with contrast-enhanced CT or MRI. Impression: 1. Bilateral nephrolithiasis. No hydronephrosis. Renal cortical cyst left kidney with mild complexity correlate with a contrast-enhanced CT or MRI renal mass protocol study. This document has been electronically signed by: Topher Flores MD on 06/04/2025 14:08:45
--- OUTSIDE RECORDS SUMMARY | 2025-06-04 07:55 | XMS_ITS | Encounter Summary ---
Author Organization [facility] Address [address] [place] [address] Care Team Providers Care Hospitality Recruiter Name Role Phone Christi Jeong MD Primary Care Provider [phone] Encounter Details Date Type Department Care Team (Late Contact Info) Description 04/12/2025 Scanned Document [facility] [address] [place] [id number] Stiven Elias, DO [address] [place], [place] [id number] Social History Tobacco Use Types Packs/Day Years Used Date Smoking Tobacco: Never Assessed Sex and Gender Information Value Date Recorded Sex Assigned at Not on file Legal Sex Male 9:57 AM EST Gender Identity Not on file Sexual Orientation Not on file documented as of this encounter Plan of Treatment Upcoming Encounters Date Type Department Care Team (Late st Contact Info) Description 09/16/2025 10:00 AM EST Office Visit [facility] [address] [place] [phone] Stiven Elias, DO [address] [place], [place] [id number] documented as of this encounter Visit Diagnoses Not on filedocumented in this encounter Care Teams Hospitality Recruiter Relationship Specialty Start Date End Date Christi Jeong MD PCP - General Family Medicine 09/03/23 documented as of this encounter
--- OUTSIDE RECORDS SUMMARY | 2025-06-04 07:55 | XMS_ITS | Clinical Summary ---
Author Organization [employer] Building Address [address] [place] [address] Phone Care Team Providers Care Woodwind Reeds Cutter Name Role Phone Christi Jeong MD Primary Care Provider [phone] Allergies Active Allergy Reactions Criticality Noted Date Comments Pilocarpine Other,Nausea And Vomiting Low 02/14/2022 Other reaction(s): Other (See Comments) Medications allopurinoL (ZYLOPRIM) 100 mg tablet Take 1 tablet (100 mg total) by mouth. Active cyanocobalamin, vitamin B-12, (VITAMIN B-12 ORAL) Take by mouth. Active ibuprofen (ADVIL,MOTRIN) 600 mg tablet 2 Active indapamide (LOZOL) 2.5 mg tablet TAKE 1 TABLET ORALLY EVERY MORNING FOR 90 DAYS Active diclofenac (VOLTAREN) 1 % topical gel Apply 4 g topically. 2 Active omeprazole (PriLOSEC) [address] capsule Take 1 capsule (20 mg total) by mouth. 1 Active oxyCODONE (ROXICODONE) 5 mg immediate release tablet Take 1 tablet (5 mg total) by mouth every 4 (four) hours. Max Daily Amount: 30 mg 2 Active pantoprazole (PROTONIX) 40 mg EC tablet Take 1 tablet (40 mg total) by mouth daily. 4 Active pilocarpine (SALAGEN) 5 mg tablet Take 1 tablet (5 mg total) by mouth. 2 Active pyridoxine (B-6) 100 mg tablet Take 1 tablet (100 mg total) by mouth. Active sodium,potassium ,mag sulfates (SUPREP) 17.5-3.13-1.6 gram recon soln bowel prep kit oral solution 4 Active traZODone (DESYREL) 50 mg tablet Take 1 tablet (50 mg total) by mouth at bedtime. 90 tablet 1 5 Active fluocinolone acetonide oiL 0.01 % drops 3 DROPS IN EAR TWO TIMES A DAY NEEDED FOR ITCHING 5 Active neomycin-polymyx in-dexamethameth asone (POLYDEX) 3.5 mg/g-10,000 unit/g-0.1 % ointment APPLY TO EXTERNAL EAR TWICE DAILY NEEDED 5 Active sildenafiL (VIAGRA) 50 mg tabletIndication s:Erectile dysfunction, unspecified erectile dysfunction type TAKE 1 TABLET (50 MG TOTAL) BY MOUTH IF NEEDED FOR ERECTILE DYSFUNCTION. 10 tablet 5 Active buPROPion XL (WELLBUTRIN XL) 150 mg 24 hr tablet TAKE 1 TABLET BY MOUTH EVERY DAY 90 tablet 1 5 Active propranolol LA (INDERAL LA) 60 mg 24 hr capsuleIndicatio ns:Chronic migraine without aura without status migrainosus, not intractable Take 1 capsule (60 mg total) by mouth 1 (one) time each day. Do not crush, chew, or split. 90 capsule 1 5 Active ubrogepant (Ubrelvy) 100 mg tabletIndication s:Chronic migraine without aura without status migrainosus, not intractable Take 1 tablet (100 mg total) by mouth 1 (one) time each day if needed for migraine. 30 tablet 5 Active Active Problems Problem Noted Date Diagnosed Date Bilateral hearing loss 12/23/2024 Cervicalgia 07/08/2024 Esophageal reflux 03/27/2024 Irritable bowel disease 03/27/2024 Right groin hernia 03/27/2024 Mild major depression ([facility] V24) 03/04/2024 Tinnitus 01/07/2024 G tube feedings ([facility] V24, [facility] V28) 03/10 Kidney stones 02/14/2022 Primary squamous cell carcin viry of throat ([facility] V24, [facility] V28) 02/07/2022 Overview (10/09/2023): hpv + 06/09/21 Primary squamous cell carcin viry of throat ([facility] V24, [facility] V28) 02/07/2022 Overview (03/27/2024): hpv + 06/09/21 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 ([facility] V24, [facility] V28) 07/04/2021 Overview (10/09/2023): T2N2M0; HPV + T2N2M0; HPV + Chronic pain of right inguinal region 06/02/2021 MONICA (obstructive sleep apnea) 08/17/2020 Overview (03/27/2024): [facility] Home Sleep Apnea Test: Date 08/10/2020; Wt 216#; BMI 32; LEIDY (AHI) 12, AI 3; HI 9; Unclassified apneas 0; Obstructive apneas 13; Central apneas 4; Mixed apneas 0; hypopneas 48; average oxygen saturation 93% (lowest 77% without saturations <88% for 5% or more of study) - Obstructive Sleep Apnea - mild; mostly hypopneas with obstructive apneas + a few central apneas; without sleep related hypoventilation by 2019 home sleep apnea test. 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 Encounters Date Type Department Care Team Description 04/08/2025 9:31 AM EDT - 04/08/2025 11:59 PM EDT Hospital Encounter [facility] [address] [place] [address] Faith Lowe [facility] Malignant neoplasm of oropharynx, unspecified ([facility] V24, [facility] V28); Dysphagia, pharyngeal phase Discharge Disposition: Home or Self Care from Last 3 Months Immunizations Immunization Administration Dates Next Due Influenza Quadravalent, MDCK , 0.5ml, preservative free (Flucelvax) 6mo and older 04/18/2022 Influenza Quadrivalent, 0.5m l, preservative free (Fluarix; FluLaval; Fluzone) ages 6mo and older (Afluria) 3yo and older 08/27/2023,04/18/2022 Influenza Whole 05/05/2021 Influenza trivalent, with preservative (Fluzone; Afluria) 6mo and older 05/07/2017,05/16/2016,05/24/2015,2012 Influenza, Unspecified 05/06/2018 Pneumococcal conjugate 13 va lent (Prevnar 13, PCV13) 2mo and older 06/23/2021 Tdap Tetanus diptheria acell ular pertussis (Boostrix; Adacel) 7yo and older 08/08/2022,11/17/2010 Surgical History Surgery Date Site/Laterality Comments HERNIA REPAIR PROCEDURE:INGUINAL HERNIA REPAIR CARPAL TUNNEL RELEASE PROCEDURE:CARPAL TUNNEL RELEASE OTHER SURGICAL HISTORY PROCEDURE:GASTROSTOMY W/ FEEDING TUBE;COMMENT:removed 2022 COLONOSCOPY PROCEDURE:COLONOSCOPY UPPER GASTROINTESTINAL ENDOSCOPY PROCEDURE:UPPER GASTROINTESTINAL ENDOSCOPY COLONOSCOPY 01/24/2024 N/A PROCEDURE:COLONOSCOPY;COMMENT :Procedure: COLONOSCOPY; Surgeon: Nirmal Longo MD; Location: [facility]; Service: Gastroenterology; Laterality: N/A; UPPER GASTROINTESTINAL ENDOSCOPY 01/24/2024 N/A PROCEDURE:UPPER GASTROINTESTINAL ENDOSCOPY;COMMENT:Procedure: UPPER ENDOSCOPY-EGD; Surgeon: Nirmal Longo MD; Location: [facility]; Service: Gastroenterology; Laterality: N/A; Medical History Medical History Date Comments Cancer ([facility] V24, [facility] V28) 2020 DX:Cancer (HCC) Migraine headache DX:Migraine he adache Inguinal hernia DX:Inguinal delmy ia Nephrolithiasis DX:Nephrolithias is Head and neck cancer (CMS/HC C V24, [facility] V28) DX:Head and neck cancer (HCC);COMMENT:chemo and radiation 2022 Anxiety DX:Anxiety HL (hearing loss) DX:HL (hearing loss) Carpal tunnel syndrome DX:Carpal tunnel syndrome Difficulty swallowing DX:Difficu lty swallowing Family History Relation Name Status Comments Brother Alive Father Alive Mother Alive Sister Alive Social History Tobacco Use Types Packs/Day Years Used Date Smoking Tobacco: Never Smokeless Tobacco: Never Alcohol Use Standard Drinks/Week Comments Not Currently 0 (1 standard drink = 0.6 oz pur e alcohol) Sex and Gender Information Value Date Recorded Sex Assigned at Not on file Legal Sex Male 3:04 AM EST Gender Identity Not on file Sexual Orientation Not on file Obstetrics History Last Filed Vital Signs Vital Sign Reading Time Taken Comments Blood Pressure 128/79 01/06/2025 8:39 AM EDT Pulse 61 01/06/2025 8:39 AM EDT Temperature 36.4 C (97.6 F) 12/23/2024 1:17 PM EDT Respiratory Rate 16 07/23/2024 11:03 AM EST Oxygen Saturation 98% 12/23/2024 1:17 PM EDT Inhaled Oxygen Concentration - - Weight 83.5 kg (184 lb) 12/23/2024 1:17 PM EDT Height 175.3 cm (5' 9 ) 12/23/2024 1:17 PM EDT Body Mass Index 27.17 12/23/2024 1:17 PM EDT Plan of Treatment Upcoming Encounters Date Type Department Care Team (Late st Contact Info) Description 06/23/2025 9:30 AM EST Office Visit Internal Medicine - [place] [address] [place] [phone] Christi Jeong MD [address] [place] [address] 07/14/2025 8:40 AM EST Office Visit [place]stroke - [place] [address] [place] [address] Mery Marrufo, [employer] [address] [place] [address] Health Maintenance Due Date Last Done Comments Zoster Vaccines (1 of 2) 1984 COVID-19 Vaccine (3 - Pfizer risk series) 01/13/2021 12/16/2020, 11/25/2020 Pneumococcal Vaccine: 50+ Years (2 of 2 - PPSV23, PCV20, or PCV21) 08/18/2021 06/23/2021 HIV Screening 07/14/2022 Social Influencers of Health Screening 07/14/2022 Influenza Vaccine (#1) 2025 , 04/18/2022, 04/18/2022, Additional history exists Cholesterol Screening (Lipid Panel) 12/24/2029 12/24/2024, 08/29/2023, 08/29/2023, Additional history exists DTaP,Tdap,and Td Vaccines (3 - Td or Tdap) 08/08/2032 08/08/2022, 11/17/2010 Colorectal Cancer Screening: Colonoscopy 01/23/2034 01/24/2024 RSV Immunization Adult Patients (1 - 1-dose 75+ series) 2039 Hepatitis C Screening Completed 07/24/2022 Depression Screening Completed 12/23/2024, 07/23/20 HIB Vaccines Aged Out No longer eligi ble based on patient's age to complete this topic HPV Vaccines Aged Out No longer eligi ble based on patient's age to complete this topic Hepatitis A Vaccines Aged Out No long er eligible based on patient's age to complete this topic Hepatitis B Vaccines Aged Out No long er eligible based on patient's age to complete this topic IPV Vaccines Aged Out No longer eligi ble based on patient's age to complete this topic MMR Vaccines Aged Out No longer eligi ble based on patient's age to complete this topic Meningococcal ACWY Vaccine Aged Out N o longer eligible based on patient's age to complete this topic Meningococcal B Vaccine Aged Out No l onger eligible based on patient's age to complete this topic RSV Immunization Patients Under 20 months Aged Out No longer eligible based on patient's age to complete this topic Varicella Vaccines Aged Out No longer eligible based on patient's age to complete this topic Procedures Procedure Name Priority Date/Time Associated Diagnosis Comments XR BARIUM SWALLOW WITH VIDEO AND SPEECH Routine 04/08/2025 11:28 AM EDT Malignant neoplasm of oropharynx, unspecified (CMS/HCC V24, CMS/HCC V28) Dysphagia, pharyngeal phase LIPID PANEL Routine 12/24/2024 8:33 AM EDT Encounter for routine adult health examination without abnormal findings DEPRESSION SCREENING Routine 07/23/2023 HEPATITIS C SCREENING Routine 07/24/2022 from Last 3 Months or Most Recently Relevant to Health Maintenance Results * XR Barium Swallow with Video and Speech (04/08/2025 11:28 AM EDT) Anatomical Region Laterality Modality Head and Neck Radiographic Selene ging 04/08/2025 5:28 PM EDT Impressions 04/08/2025 5:33 PM EDT FINDINGS/IMPRESSION: No cricopharyngeal abnormalities were noted. Small ventral cervical vertebral body disc osteophyte complexes again seen. The pharynx and cervical spine have an otherwise normal appearance. There was no laryngeal penetration or aspiration seen with any oral intake. Please refer to dedicated speech pathology report for further details and specific diet recommendations. -------- FINAL REPORT -------- Dictated By: Sathish Fuentes Dictated Date: 04/08/2025 17:28 ET Assigned Physician: Sathish Fuentes Reviewed and Electronically Signed By: Sathish Fuentes Signed Date: 04/08/2025 17:33 ET Workstation ID: [id number] Transcribed By: Self Edit Transcribed Date: 04/08/2025 17:28 ET Narrative 04/08/2025 5:33 PM EDT EXAMINATION: FL BARIUM SWALLOW MODIFIED 04/08/2025 10:44 AM CLINICAL HISTORY: Modified BA Swallow with speech therapy- COMPARISON: Modified barium swallow 08/29/2023 TECHNIQUE: Videotaped real-time fluoroscopic evaluation of the patient's swallow was performed in conjunction with speech therapy through the administration of various textured food and barium. The patient was in a lateral position FLUOROSCOPY TIME: 30 seconds Procedure Note Sathish Fuentes MD - 04/08/2025 EXAMINATION: FL BARIUM SWALLOW MODIFIED 04/08/2025 10:44 AM CLINICAL HISTORY: Modified BA Swallow with speech therapy- COMPARISON: Modified barium swallow 08/29/2023 TECHNIQUE: Videotaped real-time fluoroscopic evaluation of the patient's swallow wasperformed in conjunction with speech therapy through the administration ofvarious textured food and barium. The patient was in a lateral position FLUOROSCOPY TIME: 30 seconds IMPRESSION: FINDINGS/IMPRESSION: No cricopharyngeal abnormalities were noted. Small ventral cervical vertebral body disc osteophyte complexes againseen. The pharynx and cervical spine have an otherwise normalappearance. There was no laryngeal penetration or aspiration seen with any oralintake. Please refer to dedicated speech pathology report for further details andspecific diet recommendations. -------- FINAL REPORT -------- Dictated By: Sathish Fuentes Dictated Date: 04/08/2025 17:28 ET Assigned Physician: Sathish Fuentes Reviewed and Electronically Signed By: Sathish Fuentes Signed Date: 04/08/2025 17:33 ET Workstation ID: [id number] Transcribed By: Self Edit Transcribed Date: 04/08/2025 17:28 ET Stiven Mccord MD IM FLUOROSCOPY PROCEDURES Fi nal Result * (ABNORMAL) Lipid panel (12/24/2024 8:33 AM EDT) Cholesterol 179 0 - 200 mg/dL LAB CHEMISTRY METHOD 12/24/2024 11:55 AM EDT [facility] Triglycerides 171(H) <150 mg/dL LAB CHEMISTRY METHOD 12/24/2024 11:55 AM EDT [facility] HDL 43 32 - 70 mg/dL LAB CHEMISTRY METHOD 12/24/2024 11:55 AM EDT [facility] LDL Calculated 102 50 - 130 mg/dL LAB CHEMISTRY METHOD 12/24/2024 11:55 AM EDT [facility] VLDL Cholesterol Tuan 34.2 mg/dL LAB CHEMISTRY METHOD 12/24/2024 11:55 AM EDT [facility] Comment:No established refer ence range. Blood Venous blood specimen / Unknown Venipuncture / Unknown 12/24/2024 8:33 AM EDT 12/24/2024 8:33 AM EDT Christi Jeong MD LAB BLOOD ORDERABLES Final Result [facility] [address] [place] [address], [place] [phone] * Depression Screening (07/23/2023) Depression Screening abstracted Historical Provider HEALTH MAINTENANCE Final Result * Hepatitis C Screening (07/24/2022) Hepatitis C Screening abstracted Historical Provider HEALTH MAINTENANCE Final Result from Last 3 Months or Most Recently Relevant to Health Maintenance Insurance [place] Care Teams Woodwind Reeds Cutter Relationship Specialty Start Date End Date Christi Jeong MD [address] [place] [address] PCP - General Internal Medicine 01/10/22
--- OUTSIDE RECORDS SUMMARY | 2025-06-04 07:55 | XMS_ITS | Clinical Summary ---
Author Organization [facility] Address [address] [place] [address] Care Team Providers Care Fire Investigation Manager Name Role Phone Christi Jeong MD Primary Care Provider Unav ailable Allergies Active Allergy Reactions Criticality Noted Date Comments Pilocarpine Nausea And Vomiting Low 02/14/2022 Medications Medication Sig Dispensed Refills Start Date End Date Status ibuprofen 600 MG tablet Take by mouth every 8 (eight) hours as needed. 0 06/19/2022 Active Cyanocobalamin (VITAMIN B12 PO) Take by mouth. 0 Acti ve Ubrogepant (Ubrelvy) 100 MG TABS Take 100 mg by mouth every other day as needed. 16 tablet 2 07/08/2023 Active propranolol (INDERAL LA) 60 MG 24 hr capsule TAKE 1 CAPSULE BY MOUTH EVERY DAY 90 capsule 1 03/05/2024 Active indapamide (LOZOL) 2.5 MG tablet Take 1 tablet (2.5 mg total) by mouth daily. 90 tablet 1 03/05/2024 Active allopurinol (ZYLOPRIM) 100 MG tablet TAKE 1 TABLET BY MOUTH EVERY DAY 90 tablet 1 03/05/2024 Active traZODone (DESYREL) 50 MG tablet Take 0.5 tablets (25 mg total) by mouth every night at bedtime. 30 tablet 2 03/25/2024 Active buPROPion (WELLBUTRIN XL) 150 MG 24 hr tablet TAKE 1 TABLET BY MOUTH EVERY DAY 90 tablet 1 05/22/2024 Active Active Problems Problem Noted Date Diagnosed Date Mild major depression 03/04/2024 Tinnitus 01/07/2024 Positive depression screening 07/23/2022 Kidney stones 02/14/2022 Primary squamous cell carcinoma of throat 2021 Overview: hpv + 06/09/21 Squamous cell carcinoma of right tonsil 07/04/20 Overview: T2N2M0; HPV + Chronic pain of right inguinal region 06/02/2021 History of kidney stones 06/05/2013 Overview: Dr[facility] Trev[place] [facility] Migraine 11/14/2007 Immunizations Name Administration Dates Next Due Adacel (Tdap) 08/08/2022 Covid-19 (Pfizer) Dilution Required 12/16/2020,0 11/25/2020 Influenza Quad (Fluarix/Fluzone/FluLaval) 0.5mL (SD-IIV4) 08/27/2023,04/18/2022 Influenza Quad (Flucelvax) 0 .5mL >6mon (ccIIV4) 04/18/2022 Influenza Trivalent (Fluzone /Afluria) 5.0mL Multi-dose Vial 05/07/2017,05/16/2016,05/24/2015,2012 Influenza Whole (inactive) 05/05/2021 Pneumococcal Conjugate PCV13 06/23/2021 Tdap 11/17/2010 Family History Relation Name Status Comments Brother Alive Father Alive Mother Alive Sister Alive Social History Tobacco Use Types Packs/Day Years Used Date Smoking Tobacco: Never Smokeless Tobacco: Never Alcohol Use Standard Drinks/Week Comments Not Currently 0 (1 standard drink = 0.6 oz pur e alcohol) Sex and Gender Information Value Date Recorded Sex Assigned at Male 02/17/2022 11:13 AM EDT Gender Identity Not on file Sexual Orientation Not on file Job Start Date Occupation Industry Not on file Not on file Not on file Last Filed Vital Signs Vital Sign Reading Time Taken Comments Blood Pressure 130/76 03/04/2024 3:18 PM EDT Pulse 59 03/04/2024 3:18 PM EDT Temperature 36.6 C (97.9 F) 03/04/2024 3:18 PM EDT Respiratory Rate 8 01/24/2024 12:25 PM EDT Oxygen Saturation 98% 03/04/2024 3:18 PM EDT Inhaled Oxygen Concentration - - Weight 85.3 kg (188 lb) 03/04/2024 3:18 PM EDT Height 175.3 cm (5' 9 ) 01/24/2024 10:34 AM EDT Body Mass Index 27.76 01/24/2024 10:34 AM EDT Plan of Treatment Health Maintenance Due Date Last Done Comments Shingrix-Zoster Vaccine (1 of 2) 1984 BMI Counseling 06/22/2023 06/22/2022, 05/11/2022 Depression Screening 07/23/2023 07/23/2022, 01/05/20 Preventative Health Evaluation 08/27/2024 08/27/2023, 07/23/2022, 07/23/2022 Influenza Vaccine (#1) 2025 , 04/18/2022, 04/18/2022, Additional history exists DTap / Tdap / Td (3 - Td or Tdap) 08/08/2032 08/08/2022, 11/17/2010 Colon Cancer Screening (Colonoscopy) 01/23/2034 01/24/2024 Pneumococcal Vaccine (2 of 2 - PPSV23 or PCV20) 07/07/2036 06/23/2021 Postponed from 08/18/2021 (Not Indicated) RSV Adult > 60+ Yrs or (1 - 1-dose 75+ series) 2039 COVID-19 Vaccine Discontinued 12/16/2020, 11/25/2020 Hepatitis C Screening Completed 07/24/2022 Hepatitis B Vaccines Aged Out No long er eligible based on patient's age to complete this topic RSV Ped < 20 months Aged Out No longe r eligible based on patient's age to complete this topic Advance Directives For more information, please contact: [phone] Latest Code Status on File Code Status Date Activated Date Inactivated Comments Full Code 01/24/2024 12:04 PM 01/24/2024 6:48 PM This code status was ascertained in the following way: discussion with patient. Care Teams Fire Investigation Manager Relationship Specialty Start Date End Date Christi Jeong MD PCP - General Internal Medicine 01/10/22
--- OUTSIDE RECORDS SUMMARY | 2025-06-04 07:55 | XMS_ITS ---
Author Name [facility] Organization Unknown Results Test Name/Text Value Interpretation Date Range Source Est. average glucose Bld gHb Est-mCnc 100.0 mg/dL 12/24/2024 [facility] HbA1c MFr Bld 5.1 % 12/24/2024 - 5.7 [facility] Urate SerPl-mCnc 4.9 mg/dL 12/24/2024 3.5 - 8.5 CT _[facility] Anion Gap SerPl Calc-sCnc 7.0 12/24/2024 5 - 14 [facility] Creat SerPl-mCnc 1.1 mg/dL 12/24/2024 0.7 - 1.3 CT _[facility] ALP SerPl-cCnc 71.0 unit/L 12/24/2024 34 - 104 CT [facility] eGFRcr SerPlBld CKD-EPI 2020 77.0 mL/min/1.73m2 12/24/2024 - [facility] BUN SerPl-mCnc 18.0 mg/dL 12/24/2024 9 - 20 [facility] Glucose SerPl-mCnc 82.0 mg/dL 12/24/2024 70 - 99 [facility] ALT SerPl-cCnc 30.0 unit/L 12/24/2024 7 - 52 CT [facility] Albumin SerPl-mCnc 4.8 g/dL 12/24/2024 3.5 - 5 [facility] Prot SerPl-mCnc 6.8 g/dL 12/24/2024 6.4 - 8.5 [facility] BUN/Creat SerPl 16.4 12/24/2024 12 - 20 [facility] Potassium SerPl-sCnc 4.2 mmol/L 12/24/2024 3.5 - 5.1 [facility] Bilirub SerPl-mCnc 0.7 mg/dL 12/24/2024 0.3 - 1 [facility] Calcium SerPl-mCnc 10.0 mg/dL 12/24/2024 8.4 - 10. 2 [facility] Chloride SerPl-sCnc 100.0 mmol/L 12/24/2024 98 - 1 07 [facility] CO2 SerPl-sCnc 34.0 mmol/L Above high normal 12/24/2024 24 - 32 [facility] Sodium SerPl-sCnc 141.0 mmol/L 12/24/2024 135 - 14 5 [facility] AST SerPl-cCnc 27.0 unit/L 12/24/2024 5 - 40 [facility] HDLc SerPl-mCnc 43.0 mg/dL 12/24/2024 32 - 70 [facility] LDLc SerPl Calc-mCnc 102.0 mg/dL 12/24/2024 50 - 130 [facility] Trigl SerPl-mCnc 171.0 mg/dL Above high normal 12/24/2024 - 150 [facility] VLDLc SerPl Calc-mCnc 34.2 mg/dL 12/24/2024 [facility] Cholest SerPl-mCnc 179.0 mg/dL 12/24/2024 0 - 200 [facility] PMV Bld Auto 8.3 FL 12/24/2024 7.4 - 11.4 [facility] Monocytes # Bld Auto 0.3 K/mcL 12/24/2024 0 - 0.8 [facility] RBC Auto 90.9 FL 12/24/2024 78 - 100 [facility] Lymphocytes # Bld Auto 0.8 K/mcL Below low normal 12/24/2024 1 - 3.2 [facility] Basophils # Bld Auto 0.0 K/mcL 12/24/2024 0 - 0.2 [facility] WBC # Bld Auto 4.0 K/mcL 12/24/2024 4 - 10.5 [facility] MCH RBC Qn Auto 30.9 pcg 12/24/2024 25 - 33 [facility] Neutrophils # Bld Auto 2.8 K/mcL 12/24/2024 1.8 - 7.8 [facility] Platelet # Bld Auto 180.0 K/mcL 12/24/2024 150 - 4 50 [facility] MCHC RBC Auto-EntMCnc 34.0 g/dL 12/24/2024 32 - 36 [facility] RBC # Bld Auto 5.31 M/mcL 12/24/2024 4.7 - 6 [facility] Hct VFr Bld Auto 48.3 % 12/24/2024 40 - 54 CT [facility] Eosinophil # Bld Auto 0.1 K/mcL 12/24/2024 0 - 0.5 [facility] Lymphocytes NFr Bld Auto 19.7 % Below low normal 12/24/2024 20 - 48 [facility] Neutrophils NFr Bld Auto 69.8 % 12/24/2024 44 - 74 [facility] RDW RBC Auto 14.1 % 12/24/2024 12.1 - 17.7 [facility] Monocytes NFr Bld Auto 7.4 % 12/24/2024 2 - 12 [facility] Eosinophil NFr Bld Auto 2.4 % 12/24/2024 0 - 6 [facility] Hgb Bld-mCnc 16.4 g/dL 12/24/2024 13.5 - 18 [facility] GWENDOLYN Basophils NFr Bld Auto 0.7 % 12/24/2024 0 - 2 [facility] Sp Gr Ur 1.015 Normal 07/23/2024 1.005 - 1.03 [facility] Nitrite Ur Ql Negative Normal 07/23/2024 - [facility] Leukocyte esterase Ur Ql Strip Negative Normal 07/23/2024 - [facility] pH Ur 8.0 pH Normal 07/23/2024 5 - 8 [facility] Glucose Ur Ql Negative Normal 07/23/2024 - [facility] Hgb Ur Ql Negative Normal 07/23/2024 - [facility] Clarity Ur Clear Normal 07/23/2024 - [facility] Prot Ur Strip-mCnc Negative Normal 07/23/2024 - [facility] Color Ur Yellow Normal 07/23/2024 - [facility] Ketones Ur-mCnc Negative Normal 07/23/2024 - [facility]_ [facility] Potassium SerPl-sCnc 3.9 mmol/L Normal 07/23/2024 3.5 - 5.1 [facility] BUN SerPl-mCnc 18.0 mg/dL Normal 07/23/2024 9 - 20 [facility] BUN/Creat SerPl 17.8 Normal 07/23/2024 12 - 20 [facility] Sodium SerPl-sCnc 136.0 mmol/L Normal 07/23/2024 135 - 14 5 [facility] Calcium SerPl-mCnc 10.0 mg/dL Normal 07/23/2024 8.4 - 10. 2 [facility] ALT SerPl-cCnc 52.0 unit/L Normal 07/23/2024 7 - 52 CT [facility] Prot SerPl-mCnc 7.8 g/dL Normal 07/23/2024 6.4 - 8.5 [facility] AST SerPl-cCnc 36.0 unit/L Normal 07/23/2024 5 - 40 [facility] Anion Gap SerPl-sCnc 4.0 Below low normal 07/23/2024 5 - 14 [facility] Glucose SerPl-mCnc 87.0 mg/dL Normal 07/23/2024 70 - 199 [facility] eGFRcr SerPlBld CKD-EPI 2020 86.0 mL/min/1.73m2 Normal 07/23/2024 - [facility] Bilirub SerPl-mCnc 0.8 mg/dL Normal 07/23/2024 0.3 - 1 [facility] Albumin SerPl-mCnc 5.0 g/dL Normal 07/23/2024 3.5 - 5 [facility] ALP SerPl-cCnc 67.0 unit/L Normal 07/23/2024 34 - 104 [facility] CO2 SerPl-sCnc 35.0 mmol/L Above high normal 07/23/2024 24 - 32 [facility] Chloride SerPl-sCnc 97.0 mmol/L Below low normal 07/23/2024 98 - 107 [facility] Creat SerPl-mCnc 1.01 mg/dL Normal 07/23/2024 0.7 - 1.3 C [facility] Monocytes # Bld Auto 0.42 K/mcL Normal 07/23/2024 0 - 0.8 [facility] Hgb Bld-mCnc 16.9 g/dL Normal 07/23/2024 13.5 - 18 [facility] MH PMV Bld Auto 9.3 FL Normal 07/23/2024 7.4 - 11.4 [facility] Basophils/leuk NFr Bld Auto 0.6 % Normal 07/23/2024 0 - 2 [facility] Monocytes/leuk NFr Bld Auto 8.4 % Normal 07/23/2024 2 - 12 [facility] RBC # Bld Auto 5.53 M/mcL Normal 07/23/2024 4.7 - 6 [facility] Lymphocytes/leuk NFr Bld Auto 19.0 % Below low normal 07/23/2024 20 - 48 [facility] Lymphocytes # Bld Auto 0.95 K/mcL Below low normal 07/23/2024 1 - 3.2 [facility] Platelet # Bld Auto 206.0 K/mcL Normal 07/23/2024 150 - 4 50 [facility] Hct VFr Bld Auto 49.5 % Normal 07/23/2024 40 - 54 CT [facility] MCV RBC Auto 89.5 FL Normal 07/23/2024 78 - 100 [facility] Neutrophils # Bld Auto 3.42 K/mcL Normal 07/23/2024 1.8 - 7.8 [facility] Basophils # Bld Auto 0.03 K/mcL Normal 07/23/2024 0 - 0.2 [facility] WBC # Bld Auto 5.0 K/mcL Normal 07/23/2024 4 - 10.5 [facility] MCH RBC Qn Auto 30.6 pcg Normal 07/23/2024 25 - 33 [facility] Neutrophils/leuk NFr Bld Auto 68.6 % Normal 07/23/2024 44 - 74 [facility] Eosinophil/leuk NFr Bld Auto 2.8 % Normal 07/23/2024 0 - 6 [facility] RDW RBC Auto-Rto 13.7 % Normal 07/23/2024 12.1 - 17.7 [facility] MCHC RBC Auto-mCnc 34.1 g/dL Normal 07/23/2024 32 - 36 [facility] Eosinophil # Bld Auto 0.14 K/mcL Normal 07/23/2024 0 - 0.5 [facility] BASOPHILS NFR BLD AUTO 0.7 % Normal 09/25/2023 0 - 2 [facility] MONOCYTES NO. BLD AUTO 0.4 K/uL Normal 09/25/2023 0 - 0.8 [facility] LYMPHOCYTES NO. BLD AUTO 1.2 K/uL Normal 09/25/2023 1 - 3.2 [facility] MCV RBC AUTO 92.5 fL Normal 09/25/2023 78 - 100 [facility] HGB BLD MCNC 14.8 g/dL Normal 09/25/2023 13.5 - 18 [facility] NEUTROPHILS NO. BLD AUTO 3.4 K/uL Normal 09/25/2023 1.8 - 7.8 [facility] BASOPHILS IN BLOOD BY AUTOMATED COUNT 0.0 K/uL Normal 09/25/2023 0 - 0.2 [facility] RBC NO. BLD AUTO 4.75 M/uL Normal 09/25/2023 4.7 - 6 [facility] WBC NO. BLD AUTO 5.2 K/uL Normal 09/25/2023 4 - 10.5 CT [facility] RDW RBC AUTO RTO 14.3 % Normal 09/25/2023 12.1 - 17.7 [facility] DIFFERENTIAL TYPE AUTOMATED Normal 09/25/2023 C [facility] MCH RBC QN AUTO 31.2 pg Normal 09/25/2023 25 - 33 [facility] EOSINOPHIL NFR BLD AUTO 3.4 % Normal 09/25/2023 0 - 6 [facility] MONOCYTES NFR BLD AUTO 8.4 % Normal 09/25/2023 2 - 12 [facility] NEUTROPHILS NFR BLD AUTO 65.0 % Normal 09/25/2023 44 - 74 [facility] MCHC RBC AUTO MCNC 33.7 g/dL Normal 09/25/2023 32 - 36 [facility] PMV BLD AUTO 8.4 fL Normal 09/25/2023 7.4 - 11.[facility]O 179.0 K/uL Normal 09/25/2023 150 - 450 [facility] LYMPH[facility]TES NFR BLD AUTO 22.5 % Normal 09/25/2023 20 - 48 [facility] EOSINOPHIL NO. BLD AUTO 0.2 K/uL Normal 09/25/2023 0 - 0.5 [facility] HCT VFR BLD AUTO 44.0 % Normal 09/25/2023 40 - 54 CT [facility] HCO3 SER SCNC 30.0 mmol/L Normal 09/20/2023 24 - 32 [facility] CREAT SERPL MCNC 0.9 mg/dL Normal 09/20/2023 0.7 - 1.3 CT [facility] ALP SERPL-CCNC 61.0 U/L Normal 09/20/2023 34 - 104 [facility] CHLORIDE SERPL SCNC 103.0 mmol/L Normal 09/20/2023 98 - 1 07 [facility] GLUCOSE SERPL MCNC 81.0 mg/dL Normal 09/20/2023 70 - 199 [facility] SODIUM SERPL SCNC 141.0 mmol/L Normal 09/20/2023 135 - 14 5 [facility] ANION GAP SERPL SCNC 8.0 mmol/L Normal 09/20/2023 5 - 14 [facility] CALCIUM SERPL MCNC 9.3 mg/dL Normal 09/20/2023 8.4 - 10.2 [facility] PROT SERPL MCNC 6.7 g/dL Normal 09/20/2023 6.4 - 8.5 [facility] ALBUMIN SERPL BCG MCNC 4.4 g/dL Normal 09/20/2023 3.5 - 5 [facility] BILIRUB SERPL MCNC 0.5 mg/dL Normal 09/20/2023 0.3 - 1 [facility] AST SERPL CCNC 17.0 U/L Normal 09/20/2023 5 - 40 [facility] POTASSIUM SERPL SCNC 4.3 mmol/L Normal 09/20/2023 3.5 - 5.1 [facility] ALT SERPL CCNC 30.0 U/L Normal 09/20/2023 7 - 52 [facility] BUN SERPL MCNC 20.0 mg/dL Normal 09/20/2023 9 - 20 [facility] Glomerular filtration rate/1.73 sq M. predicted 98.0 Normal 09/20/2023 60 - CT[facility] WBC NO. BLD AUTO 15.5 K/uL Above high normal 08/29/2023 4 - 10.5 [facility] PLATELET NO. BLD AUTO 175.0 K/uL Normal 08/29/2023 150 - 450 [facility] BASOPHILS NFR BLD AUTO 0.2 % Normal 08/29/2023 0 - 2 [facility] NEUTROPHILS NFR BLD AUTO 90.4 % Above high normal 08/29/2023 44 - 74 [facility] EOSINOPHIL NO. BLD AUTO 0.1 K/uL Normal 08/29/2023 0 - 0.5 [facility] EOSINOPHIL NFR BLD AUTO 0.7 % Normal 08/29/2023 0 - 6 [facility] DIFFERENTIAL TYPE AUTOMATED Normal 08/29/2023 [facility] MONOCYTES NFR BLD AUTO 3.4 % Normal 08/29/2023 2 - 12 [facility] MCHC RBC AUTO MCNC 34.5 g/dL Normal 08/29/2023 32 - 36 [facility] MCV RBC AUTO 91.7 fL Normal 08/29/2023 78 - 100 [facility] MCH RBC QN AUTO 31.6 pg Normal 08/29/2023 25 - 33 [facility] PMV BLD AUTO 8.5 fL Normal 08/29/2023 7.4 - 11.4 [facility] RBC NO. BLD AUTO 4.75 M/uL Normal 08/29/2023 4.7 - 6 CT [facility] HGB BLD MCNC 15.0 g/dL Normal 08/29/2023 13.5 - 18 [facility] LYMPHOCYTES NO. BLD AUTO 0.8 K/uL Below low normal 08/29/2023 1 - 3.2 [facility] MONOCYTES NO. BLD AUTO 0.5 K/uL Normal 08/29/2023 0 - 0.8 [facility] RDW RBC AUTO RTO 14.3 % Normal 08/29/2023 12.1 - 17.7 [facility] LYMPHOCYTES NFR BLD AUTO 5.3 % Below low normal 08/29/2023 20 - 48 [facility] NEUTROPHILS NO. BLD AUTO 14.0 K/uL Above high normal 08/29/2023 1.8 - 7.8 [facility] HCT VFR BLD AUTO 43.5 % Normal 08/29/2023 40 - 54 [facility] BASOPHILS IN BLOOD BY AUTOMATED COUNT 0.0 K/uL Normal 08/29/2023 0 - 0.2 [facility] BILIRUB SERPL MCNC 1.2 mg/dL Above high normal 08/29/2023 0. 3 - 1 [facility] BUN SERPL MCNC 13.0 mg/dL Normal 08/29/2023 9 - 20 [facility] ANION GAP SERPL SCNC 8.0 mmol/L Normal 08/29/2023 5 - 14 [facility] Glomerular filtration rate/1.73 sq M. predicted 98.0 Normal 08/29/2023 60 - [facility] ALT SERPL CCNC 30.0 U/L Normal 08/29/2023 7 - 52 [facility] AST SERPL CCNC 21.0 U/L Normal 08/29/2023 5 - 40 [facility] SODIUM SERPL SCNC 139.0 mmol/L Normal 08/29/2023 135 - 14 5 [facility] GLUCOSE P FAST SERPL MCNC 87.0 mg/dL Normal 08/29/2023 70 - 99 [facility] CHLORIDE SERPL SCNC 101.0 mmol/L Normal 08/29/2023 98 - 1 07 [facility] HCO3 SER SCNC 30.0 mmol/L Normal 08/29/2023 24 - 32 [facility] PROT SERPL MCNC 6.6 g/dL Normal 08/29/2023 6.4 - 8.5 [facility] CALCIUM SERPL MCNC 9.6 mg/dL Normal 08/29/2023 8.4 - 10.2 [facility] ALBUMIN SERPL BCG MCNC 4.4 g/dL Normal 08/29/2023 3.5 - 5 [facility] ALP SERPL-CCNC 52.0 U/L Normal 08/29/2023 34 - 104 [facility] CREAT SERPL MCNC 0.9 mg/dL Normal 08/29/2023 0.7 - 1.3 CT [facility] POTASSIUM SERPL SCNC 3.8 mmol/L Normal 08/29/2023 3.5 - 5.1 [facility] Hgb A1c MFr Bld HPLC 5.2 % Normal 08/29/2023 - 5.7 [facility] PSA SERPL-MCNC 0.9 ng/mL Normal 08/29/2023 0 - 4 [facility] HDLC SERPL-MCNC 41.0 mg/dL Normal 08/29/2023 32 - 70 [facility] LDLc SerPl Calc-mCnc 86.0 mg/dL Normal 08/29/2023 50 - 130 [facility] TRIGL SERPL-MCNC 115.0 mg/dL Normal 08/29/2023 - 150 [facility] CHOLEST SERPL-MCNC 150.0 mg/dL Normal 08/29/2023 0 - 200 [facility] History of Medication Use Medication Directions Dispensed Refills Start Date End Date Stat barium sulfate (VARIBAR NECTAR, TAGITOL V) 40 % (w/v) suspension 5 mL 5 mL, oral, Once in imaging, Starting on Carlene 04/08/25 at 1129, For 1 dose 04/08/2025 04/08/2025 completed ubrogepant (Ubrelvy) 100 mg tablet Take 1 tablet (100 mg total) by mouth 1 (one) time each day if needed for migraine. 02/23/2025 active propranolol LA (INDERAL LA) 60 mg 24 hr capsule Take 1 capsule (60 mg total) by mouth 1 (one) time each day. Do not crush, chew, or split. 01/06/2025 active sildenafiL (VIAGRA) 50 mg tablet TAKE 1 TABLET (50 MG TOTAL) BY MOUTH IF NEEDED FOR ERECTILE DYSFUNCTION. 12/25/2024 active buPROPion XL (WELLBUTRIN XL) 150 mg 24 hr tablet TAKE 1 TABLET BY MOUTH EVERY DAY 12/24/2024 active sildenafiL (VIAGRA) 50 mg tablet Take 1 tablet (50 mg total) by mouth if needed for erectile dysfunction. 12/23/2024 active traZODone (DESYREL) 50 mg tablet Take 1 tablet (50 mg total) by mouth at bedtime. 11/27/2024 active tutpacll-wjytjxlnr-z examethamethasone (POLYDEX) 3.5 mg/g-10,000 unit/g-0.1 % ointment APPLY TO EXTERNAL EAR TWICE DAILY NEEDED 11/19/2024 active mqhmrhmv-wrtaaqels-s examethamethasone (POLYDEX) 3.5 mg/g-10,000 unit/g-0.1 % ointment APPLY TO EXTERNAL EAR TWICE DAILY NEEDED 11/19/2024 active fluocinolone acetonide oiL 0.01 % drops 3 DROPS IN EAR TWO TIMES A DAY NEEDED FOR ITCHING 09/28/2024 active fluocinolone acetonide oiL 0.01 % drops 3 DROPS IN EAR TWO TIMES A DAY NEEDED FOR ITCHING 09/28/2024 active ketorolac (TORADOL) 15 mg/mL injection - ADS Override Pull Starting on Carlene 07/23/24 at 1119, For 1 dose, Created by cabinet override 07/23/2024 07/23/2024 completed ketorolac (TORADOL) injection 15 mg 15 mg, intravenous, Once, On Carlene 07/23/24 at 1117, For 1 dose 07/23/2024 07/23/2024 completed ondansetron (PF) (ZOFRAN) injection 4 mg 4 mg, intravenous, Once, On Carlene 07/23/24 at 1117, For 1 dose 07/23/2024 07/23/2024 completed sodium chloride 0.9 % bolus 1,000 mL 1,000 mL, intravenous, at 1,000 mL/hr, Administer over 1 Hours, Once, On Carlene 07/23/24 at 1117, For 1 dose 07/23/2024 07/23/2024 completed propranolol LA (INDERAL LA) 60 mg 24 hr capsule Take 1 capsule (60 mg total) by mouth 1 (one) time each day. Do not crush, chew, or split. 07/08/2024 01/06/2025 active ubrogepant (Ubrelvy) 100 mg tablet Take 1 tablet (100 mg total) by mouth 1 (one) time each day if needed for migraine. 07/08/2024 01/06/2025 active propranolol LA (INDERAL LA) 60 mg 24 hr capsule TAKE 1 CAPSULE BY MOUTH EVERY DAY 06/22/2024 07/08/2024 aborted traZODone (DESYREL) 50 mg tablet Take 1 tablet (50 mg total) by mouth at bedtime. 06/22/2024 active traZODone (DESYREL) 50 mg tablet Take 0.5 tablets (25 mg total) by mouth. 03/25/2024 active traZODone (DESYREL) 50 MG tablet Take 0.5 tablets (25 mg total) by mouth every night at bedtime. 03/25/2024 active indapamide (LOZOL) 2.5 MG tablet Take 1 tablet (2.5 mg total) by mouth daily. 03/05/2024 active buPROPion XL (WELLBUTRIN XL) 150 mg 24 hr tablet TAKE 1 TABLET BY MOUTH EVERY DAY 03/04/2024 03/05/2025 active buPROPion (Wellbutrin XL) 150 MG 24 hr tablet Take 1 tablet (150 mg total) by mouth daily. 03/04/2024 active PANTOprazole (PROTONIX) 40 MG EC tablet TAKE 1 TABLET BY MOUTH EVERY DAY 02/03/2024 06/30/2024 active pantoprazole (PROTONIX) 40 mg EC tablet Take 1 tablet (40 mg total) by mouth daily. 02/03/2024 active pantoprazole (PROTONIX) 40 mg EC tablet Take 1 tablet (40 mg total) by mouth daily. 02/03/2024 active escitalopram (LEXAPRO) 5 MG tablet Take 1 tablet (5 mg total) by mouth daily. 12/17/2023 active escitalopram (LEXAPRO) 5 MG tablet Take 1 tablet (5 mg total) by mouth daily. 12/17/2023 active fqpnmv-kiudnbilj-ctr nesium sulfates (SUPREP BOWEL PREP) 17.5-3.13-1.6 GM/177ML Solution solution FOLLOW DIRECTIONS PROVIDED BY PHYSICIAN'S OFFICE. 11/27/2023 11/20/2024 active sodium,potassium,mag sulfates (SUPREP) 17.5-3.13-1.6 gram recon soln bowel prep kit oral solution Follow directions provided by physician's office. 11/27/2023 active sodium,potassium,mag sulfates (SUPREP) 17.5-3.13-1.6 gram recon soln bowel prep kit oral solution 11/27/2023 active allopurinol (ZYLOPRIM) 100 MG tablet TAKE 1 TABLET BY MOUTH EVERY DAY 09/25/2023 09/25/2023 active allopurinol (ZYLOPRIM) 100 mg tablet Take 100 mg by mouth daily. 09/25/2023 active allopurinol (ZYLOPRIM) 100 MG tablet Take 1 tablet (100 mg total) by mouth daily. 09/25/2023 active hydrOXYzine (VISTARIL) 25 MG capsule Take 1 capsule (25 mg total) by mouth every night at bedtime as needed for anxiety (insomnia). 09/25/2023 active hydrOXYzine pamoate (VISTARIL) 25 MG capsule Take 1 capsule (25 mg total) by mouth every night at bedtime as needed for anxiety (insomnia). 09/25/2023 active indapamide (LOZOL) 2.5 MG tablet TAKE 1 TABLET ORALLY EVERY MORNING FOR 90 DAYS 09/25/2023 active indapamide (LOZOL) 2.5 MG tablet TAKE 1 TABLET ORALLY EVERY MORNING FOR 90 DAYS 09/25/2023 active hydrOXYzine (VISTARIL) 25 MG capsule Take 1 capsule (25 mg total) by mouth every night at bedtime as needed for anxiety (insomnia). 08/27/2023 03/04/2024 active escitalopram (LEXAPRO) 10 MG tablet Take 10 mg by mouth daily. 08/27/2023 active escitalopram (LEXAPRO) tablet 10 mg Take 1 tablet (10 mg total) by mouth daily. 08/27/2023 active propranolol (INDERAL LA) 60 MG 24 hr capsule TAKE 1 CAPSULE BY MOUTH EVERY DAY 07/19/2023 active propranolol (INDERAL LA) 60 MG 24 hr capsule Take 1 tablet by mouth daily. 07/19/2023 active ubrogepant (Ubrelvy) 100 MG tablet Take 100 mg by mouth every other day as needed. 07/08/2023 active Ubrogepant (Ubrelvy) 100 MG TABS Take 100 mg by mouth every other day as needed. 07/08/2023 active Ubrogepant (Ubrelvy) 100 MG TABS Take 100 mg by mouth every other day as needed. 07/08/2023 active propranolol (INDERAL LA) 60 MG 24 hr capsule TAKE 1 CAPSULE BY MOUTH EVERY DAY 02/25/2023 active indapamide (LOZOL) 2.5 MG tablet TAKE 1 TABLET ORALLY EVERY MORNING FOR 90 DAYS 02/17/2023 09/25/2023 active ibuprofen (ADVIL,MOTRIN) 600 mg tablet 06/19/2022 active ibuprofen (ADVIL,MOTRIN) 600 mg tablet 06/19/2022 active ibuprofen 600 MG tablet Take by mouth every 8 (eight) hours as needed. 06/19/2022 active ibuprofen 600 MG tablet Take by mouth every 8 (eight) hours as needed. 06/19/2022 active diclofenac (VOLTAREN) 1 % topical gel Apply 4 g topically. 02/21/2022 active diclofenac (VOLTAREN) 1 % topical gel Apply 4 g topically. 02/21/2022 active eletriptan hydrobromide (RELPAX ORAL) Take by mouth. 01/12/2022 12/23/2024 active pilocarpine (SALAGEN) 5 mg tablet Take 1 tablet (5 mg total) by mouth. 01/04/2022 active pilocarpine (SALAGEN) 5 mg tablet Take 1 tablet (5 mg total) by mouth. 01/04/2022 active pilocarpine (SALAGEN) 5 mg tablet Take 1 tablet (5 mg total) by mouth. 01/04/2022 active oxyCODONE (ROXICODONE) 5 mg immediate release tablet Take 1 tablet (5 mg total) by mouth every 4 (four) hours. Max Daily Amount: 30 mg 11/30/2021 active oxyCODONE (ROXICODONE) 5 mg immediate release tablet Take 1 tablet (5 mg total) by mouth every 4 (four) hours. Max Daily Amount: 30 mg 11/30/2021 active oxyCODONE (ROXICODONE) 5 mg immediate release tablet Take 1 tablet (5 mg total) by mouth every 4 (four) hours. Max Daily Amount: 30 mg 11/30/2021 active fluconazole (DIFLUCAN) 40 mg/mL suspension 2.5 ML G TUBE DAILY,X14 DAYS 10/19/2021 active sildenafiL (VIAGRA) 50 mg tablet 1 tab prior to sexual activity 04/26/2021 12/23/2024 active omeprazole (PriLOSEC) [address] capsule Take 1 capsule (20 mg total) by mouth. 03/02/2021 active omeprazole (PriLOSEC) [address] capsule Take 1 capsule (20 mg total) by mouth. 03/02/2021 active eletriptan (RELPAX) 40 MG tablet 1 tablet (40 mg total) as needed. 09/23/2020 08/27/2023 aborted hydrOXYzine pamoate (VISTARIL) 25 mg capsule Take 1 capsule (25 mg total) by mouth every night at bedtime as needed for anxiety (insomnia). 12/23/2024 active ubrogepant (Ubrelvy) 100 mg tablet Take 100 mg by mouth every other day as needed. 07/08/2024 aborted vitamin B-12 (CYANOCOBALAMIN) 100 MCG tablet Take 1 tablet (100 mcg total) by mouth daily. 03/04/2024 aborted pyridoxine (B-6) 100 MG tablet Take 1 tablet (100 mg total) by mouth. 08/27/2023 aborted allopurinoL (ZYLOPRIM) 100 mg tablet Take 1 tablet (100 mg total) by mouth. active allopurinoL (ZYLOPRIM) 100 mg tablet Take 1 tablet (100 mg total) by mouth. active Cyanocobalamin (VITAMIN B-12 PO) Take by mouth. act frank Cyanocobalamin (VITAMIN B12 PO) Take by mouth. acti ve Cyanocobalamin (VITAMIN B12 PO) Take by mouth. acti ve cyanocobalamin, vitamin B-12, (VITAMIN B-12 ORAL) Take by mouth. a ctive escitalopram (LEXAPRO) 10 mg tablet Take 1 tablet (10 mg total) by mouth daily. active indapamide (LOZOL) 2.5 mg tablet TAKE 1 TABLET ORALLY EVERY MORNING FOR 90 DAYS active indapamide (LOZOL) 2.5 mg tablet TAKE 1 TABLET ORALLY EVERY MORNING FOR 90 DAYS active pyridoxine (B-6) 100 mg tablet Take 1 tablet (100 mg total) by mouth. active pyridoxine (B-6) 100 mg tablet Take 1 tablet (100 mg total) by mouth. 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 ProblemAct [facility] Gastroesophageal reflux disease, unspecified whether esophagitis present active EncounterDiagnosisAct [facility] Eosinophilic esophagitis active EncounterDiagnosisAct [facility] Dysphagia, unspecified active EncounterDiagnosisAct [facility] Positive depression screening active 2022-07-23 ProblemAct [facility] Other insomnia active EncounterDiagnosisAct [facility] Colon cancer screening active EncounterDiagnosisAct [facility] History of kidney stones active 2013-06-05 ProblemAct [facility] Kidney stones active 2022-02-14 ProblemAct [facility] Tinnitus active 2024-01-07 ProblemAct [facility] Erectile dysfunction active 2010-06-21 ProblemAct [facility] Hyperlipidemia active 2009-05-13 ProblemAct [facility]_ [facility] Dysphagia, pharyngeal phase active EncounterDiagnosisAct [facility] [place]ICA (obstructive sleep apnea) active 2020-08-17 ProblemAct [facility] Malignant neoplasm of oropharynx, unspecified ([facility] V24, [facility] V28) active EncounterDiagnosisAct C T_[facility] BPH (benign prostatic hyperplasia) active 2015-06-28 ProblemAct [facility] G tube feedings ([facility] V24, [facility] V28) active 2022-03-10 ProblemAct [facility] Primary squamous cell carcinoma of throat ([facility] V24, [facility] V28) active 2022-02-07 ProblemAct [facility] Bilateral hearing loss active 2024-12-23 ProblemAct [facility] Allergic rhinitis active 2007-11-14 ProblemAct [facility] Migraine active 2007-11-14 ProblemAct [facility] Irritable bowel disease active 2024-03-27 ProblemAct [facility] Chronic pain of right inguinal region active 2021-06-02 ProblemAct [facility] Squamous cell carcinoma of right tonsil ([facility] V24, [facility] V28) active 2021-07-04 ProblemAct [facility] Cervicalgia active 2024-07-08 ProblemAct [facility] Esophageal reflux active 2024-03-27 ProblemAct [facility] Right groin hernia active 2024-03-27 ProblemAct [facility] Mild major depression ([facility] V24) active 2024-03-04 ProblemAct [facility] Neuroma active 2016-11-16 ProblemAct [facility] 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 ProblemAct [facility] Conductive hearing loss, bilateral active EncounterDiagnosisAct [facility]_ [facility] Chronic migraine without aura without status migrainosus, not intractable active EncounterDiagnosisAct [facility]_ [facility] Tinnitus of both ears active EncounterDiagnosis Act [facility] Immunizations Vaccine Date Source Lot Number Status Influenza Quadrivalent, 0.5m l, preservative free (Fluarix; FluLaval; Fluzone) ages 6mo and older (Afluria) 3yo and older 08/27/2023 [facility]OL[facility]ER [facility] [id number] completed Influenza Quadrivalent, 0.5m l, preservative free (Fluarix; FluLaval; Fluzone) ages 6mo and older (Afluria) 3yo and older 08/27/2023 [facility] [id number] completed Tdap Tetanus diptheria acell ular pertussis (Boostrix; Adacel) 7yo and older 08/08/2022 [facility] TDAP completed Tdap Tetanus diptheria acell ular pertussis (Boostrix; Adacel) 7yo and older 08/08/2022 [facility] TDAP completed Influenza Quadravalent, MDCK , 0.5ml, preservative free (Flucelvax) 6mo and older 04/18/2022 [facility] [id number] completed Influenza Quadravalent, MDCK , 0.5ml, preservative free (Flucelvax) 6mo and older 04/18/2022 [facility] [id number] completed Influenza Quadrivalent, 0.5m l, preservative free (Fluarix; FluLaval; Fluzone) ages 6mo and older (Afluria) 3yo and older 04/18/2022 [facility] completed Influenza Quadrivalent, 0.5m l, preservative free (Fluarix; FluLaval; Fluzone) ages 6mo and older (Afluria) 3yo and older 04/18/2022 [facility] completed Pneumococcal conjugate 13 va lent (Prevnar 13, PCV13) 2mo and older 06/23/2021 [facility] [id number] complet ed Pneumococcal conjugate 13 va lent (Prevnar 13, PCV13) 2mo and older 06/23/2021 [facility] [id number] complet ed Influenza Whole 05/05/2021 [facility] UNK completed Influenza Whole 05/05/2021 [facility] UNK completed Covid-19 (Pfizer) Dilution Required 12/16/2020 [facility] UNMaster completed Covid-19 (Pfizer) Dilution Required 11/25/2020 [facility] KESSLER completed Influenza, Unspecified 05/06/2018 [facility] [id number] co mpleted Influenza, Unspecified 05/06/2018 [facility] [id number] co mpleted Influenza trivalent, with pr eservative (Fluzone; Afluria) 6mo and older 05/07/2017 [facility] completed Influenza trivalent, with pr eservative (Fluzone; Afluria) 6mo and older 05/07/2017 [facility] completed Influenza trivalent, with pr eservative (Fluzone; Afluria) 6mo and older 05/16/2016 [facility] completed Influenza trivalent, with pr eservative (Fluzone; Afluria) 6mo and older 05/16/2016 [facility] completed Influenza trivalent, with pr eservative (Fluzone; Afluria) 6mo and older 05/24/2015 [facility] completed Influenza trivalent, with pr eservative (Fluzone; Afluria) 6mo and older 05/24/2015 [facility] completed Influenza trivalent, with pr eservative (Fluzone; Afluria) 6mo and older 04/19/2013 [facility] completed Influenza trivalent, with pr eservative (Fluzone; Afluria) 6mo and older 04/19/2013 [facility] completed Tdap Tetanus diptheria acell ular pertussis (Boostrix; Adacel) 7yo and older 11/17/2010 [facility] [id number] completed Tdap Tetanus diptheria acell ular pertussis (Boostrix; Adacel) 7yo and older 11/17/2010 [facility] [id number] completed Encounters Encounter Type Encounter Reason Primary Diagnosis Location Date Ambulatory Malignant neoplasm of oropharynx, unspecified ([facility] V24, [facility] V28) Malignant neoplasm of oropharynx, unspecified ([facility] V24, [facility] V28) [facility] 04/08/2025 Ambulatory Follow-up Follow-up [facility] 03/18/2025 Ambulatory Chronic migraine without aura, not intractable, without status migrainosus Chronic migraine without aura, not intractable, without status migrainosus [facility] 01/06/2025 Ambulatory Annual Exam Encounter for general adult medical examination without abnormal findings [facility] 12/23/2024 Ambulatory Follow-up Follow-up [facility] 09/17/2024 Emergency Kidney pain Unspecified abdominal pain [facility] 07/23/2024 Ambulatory Chronic migraine without aura, not intractable, without status migrainosus Chronic migraine without aura, not intractable, without status migrainosus [facility] 07/08/2024 Ambulatory Encounter for screening for malignant neoplasm of colon Encounter for screening for malignant neoplasm of colon [facility] 01/24/2024 Ambulatory Consult Consult [facility] 11/27/2023 Ambulatory Elevated white blood cell count, unspecified Elevated white blood cell count, unspecified [facility] 09/25/2023 Ambulatory Elevated white blood cell count, unspecified Elevated white blood cell count, unspecified [facility] 09/20/2023 Ambulatory Malignant neoplasm of head, face and neck Malignant neoplasm of head, face and neck [facility] 08/29/2023 Ambulatory Encounter for general adult medical examination without abnormal findings Encounter for general adult medical examination without abnormal findings [facility] 08/29/2023 Care Team Organization Name Specialty Phone Email Start Date End Da te [facility] 05/27/2025 [facility] 12/16/[address] [facility] 2024 [facility] 07/11/2024 [facility] 07/08/2024 [facility] 12/03/2023 [facility] 11/28/2023 04/16/2025 [facility] 09/04/2023 [facility] 08/30/2023 [facility] Primary Care 08/30/2023 [facility] 08/29/2023 [facility] Primary Care 08/29/2023 02/16/2025 Critical access hospital 02/15/2023 [facility] Christi Jeong MD Primary Care 08/13/2022 03/23/2024 [facility] Termed, PROVIDER Primary Care 06/12/202203/05
--- OUTSIDE RECORDS SUMMARY | 2025-06-04 07:55 | XMS_ITS | Clinical Summary ---
Author Organization [facility] Address [address] [place] [address] Care Team Providers Care Emergency Care Attendant Name Role Phone Christi Jeong MD Primary Care Provider Allergies No known active allergies Medications allopurinol (ZYLOPRIM) 100 mg tablet Take 100 mg by mouth daily. 09/25/19 24 Active indapamide (LOZOL) 2.5 MG tablet TAKE 1 TABLET ORALLY EVERY MORNING FOR 90 DAYS 09/25/19 24 Active propranolol (INDERAL LA) 60 MG 24 hr capsule Take 1 tablet by mouth daily. 07/19/20 23 Active ubrogepant (Ubrelvy) 100 MG tablet Take 100 mg by mouth every other day as needed. 07/08/20 23 Active escitalopram (LEXAPRO) 10 MG tablet Take 10 mg by mouth daily. 08/27/19 24 Active hydrOXYzine pamoate (VISTARIL) 25 MG capsule Take 1 capsule (25 mg total) by mouth every night at bedtime as needed for anxiety (insomnia). 09/25/19 24 Active Cyanocobalamin (VITAMIN B-12 PO) Take by mouth. Activ e IBUPROFEN PO Take by mouth. Ac tive sodium-potassiu m-magnesium sulfates (SUPREP BOWEL PREP) 17.5-3.13-1.6 GM/177ML Solution solutionIndicat ions:Colon cancer screening FOLLOW DIRECTIONS PROVIDED BY PHYSICIAN'S OFFICE. 354 mL 11/21/19 25 Active PANTOprazole (PROTONIX) 40 MG EC tabletIndicatio ns:Gastroesopha geal reflux disease, unspecified whether esophagitis present,Eosinop hilic esophagitis TAKE 1 TABLET BY MOUTH EVERY DAY 90 tablet 05/21/20 25 Active PANTOprazole (PROTONIX) 40 MG EC tabletIndicatio ns:Gastroesopha geal reflux disease, unspecified whether esophagitis present,Dysphag ia, unspecified type TAKE 1 TABLET BY MOUTH EVERY DAY 90 tablet 02/17/20 25 025 Discontinued Active Problems Problem Noted Date Diagnosed Date Oropharyngeal cancer 03/18/2025 Encounters Date Type Department Care Team Description 05/20/2025 Refill [facility] [address] [place] [phone] Gissell Napoles PA-C Gastroesophageal reflux disease, unspecified whether esophagitis present; Eosinophilic esophagitis 04/12/2025 Scanned Document [facility] [address] [place] [address] Stiven Elias DO 03/22/2025 Scanned Document [facility] [address], [address] [place] [phone] Stiven Elias DO 03/22/2025 Orders Only [facility] [address], [address] [place] [phone] Stiven Elias DO Oropharyngeal cancer (HCC) (Primary Dx); Pharyngeal dysphagia 03/18/2025 9:30 AM EDT Office Visit [facility] [address] [place] [address] Stiven Elias DO Oropharyngeal cancer (HCC) (Primary Dx); Pharyngeal dysphagia; Xerostomia from Last 3 Months Social History Tobacco Use Types Packs/Day Years Used Date Smoking Tobacco: Never Assessed Sex and Gender Information Value Date Recorded Sex Assigned at Not on file Legal Sex Male 9:57 AM EST Gender Identity Not on file Sexual Orientation Not on file Last Filed Vital Signs Vital Sign Reading Time Taken Comments Blood Pressure 118/76 11/27/2023 1:59 PM EDT Pulse 62 11/27/2023 1:59 PM EDT Temperature - - Respiratory Rate - - Oxygen Saturation - - Inhaled Oxygen Concentration - - Weight 72.6 kg (160 lb) 03/18/2025 9:20 AM EDT Height 175.3 cm (5' 9 ) 03/18/2025 9:20 AM EDT Body Mass Index 23.63 03/18/2025 9:20 AM EDT Plan of Treatment Upcoming Encounters Date Type Department Care Team (Late st Contact Info) Description 09/16/2025 10:00 AM EST Office Visit [facility] [place] [address] [place] [phone] Stiven Elias DO [address] [place] [address] Health Maintenance Due Date Last Done Comments Hepatitis C Virus Screening 1964 HIV Screening 1977 DTaP/Tdap/Td Vaccines (1 - Tdap) 1983 Pneumococcal Vaccines 50+ (1 of 2 - PCV) 1983 Zoster (Shingles) Vaccine (1 of 2) 1983 COVID-19 Vaccine (3 - Pfizer risk series) 01/13/2021 12/16/2020, 11/25/2020 Influenza Vaccine 03/05/2025 08/27/2023, , 04/18/2022, Additional history exists Colonoscopy 01/23/2034 01/24/2024 RSV Vaccine 50 years and older and Patients (1 - 1-dose 75+ series) 2039 Hepatitis B Vaccines Aged Out No long er eligible based on patient's age to complete this topic Insurance [facility] Care Teams Emergency Care Attendant Relationship Specialty Start Date End Date Christi Jeong MD PCP - General Family Medicine 09/03/23
--- OUTSIDE RECORDS SUMMARY | 2025-06-04 07:55 | XMS_ITS | Encounter Summary ---
Author Organization [facility] Address [address] [place] [address] Care Team Providers Care Quantitative Strategy Analyst Name Role Phone Christi Jeong MD Primary Care Provider [phone] Encounter Details Date Type Department Care Team (Late Contact Info) Description 03/22/2025 Scanned Document [facility] [address], [facility] [address] [place] [phone] Stiven Elias, [address] [place], [place] [phone] Social History Tobacco Use Types Packs/Day Years Used Date Smoking Tobacco: Never Assessed Sex and Gender Information Value Date Recorded Sex Assigned at Not on file Legal Sex Male 9:57 AM EST Gender Identity Not on file Sexual Orientation Not on file documented as of this encounter Plan of Treatment Upcoming Encounters Date Type Department Care Team (Late Contact Info) Description 09/16/2025 10:00 AM EST Office Visit [facility] [address] [place] [phone] Elias, [facility] [address] [place], [place] [phone] documented as of this encounter Visit Diagnoses Not on filedocumented in this encounter Care Teams Quantitative Strategy Analyst Relationship Specialty Start Date End Date Christi Jeong MD PCP - General Family Medicine 09/03/23 documented as of this encounter
== END 2025-06-04 07:53 | disposition home or self-care (01) ==
LOC: HO.US 07:52
PROVIDERS: PCP Internal Medicine; Visit Provider Urology
DX: N20.0 Calculus of kidney (principal)
CPT/HCPCS: 76775

== ENCOUNTER → 2025-06-04 07:54 | Outpatient (BNV) | payer OTHER, SELFPAY | PROVIDERS: PCP Internal Medicine; Visit Provider Radiology Diagnostic Radiology | DX: N20.0 Calculus of kidney (principal); N28.1 Cyst of kidney, acquired | CPT/HCPCS: 76775 ==

== ENCOUNTER 2025-06-10 09:44 | Outpatient (AMB) | payer OTHER, SELFPAY ==
--- NOTE | 2025-06-10 09:43 | MHC.OFFVIS ---
Intake Visit Reasons: 1y/US Intake Note: Patient is Present for 1 yr Follow Up for kidney stones Urology Med: Vitamin B6, Allopurinol, Indapamine Antibiotic Allergy: None Blood Thinner:None Imaging done 06/04/25: Ultrasound Sorter Upholstery Parts Required: No Accompanied by: Self / Same As Patient Allergies No Known Allergies Allergy (Verified 06/10/25 09:44) HPI Comments Details: Nomi Dubois is very pleasant male. He is a patient of Dr. Zarate. He is seen for the following urologic conditions - lower urinary tract symptoms - hematuria - Nephrolithiasis Yearly follow-up Historically has been on combination allopurinol, indapamide and vitamin B6 This appears to have significantly reduced his stone production Ultrasound - 05/29 small echogenic foci Prior 24 hour urine results Good volume, high citrate, normal calcium with medication, mild elevated oxalate, high sodium PSA 05/27 0.9 Refill medications Discussed head and neck radiation with muscle impact. Trial vitamin-E in pentoxifylline per [place] protocol Nephrolithiasis/Urolithiasis: Recovering from head and neck radiation changes to taste particularly water which taste metallic Continues with indapamide 2.5 mg and vitamin B6 with allopurinol They are here for further evaluation of nephrolithiasis - Stones since 2010 - multiple occurrences - no stone seen on current imaging. Continue medications Repeat imaging in 6 months. If stable can move 12 months. Urolithiasis was diagnosed 2010 The patient previously had kidney stones whose composition w calcium stones. Laboratory investigations include Base line serum evaluation, Normocalcemia (9.0), Normal PTH, Normal uric acid 12/21 , Normocalcemia (9.0), Normal PTH, Normal uric acid. 24 Hour urine evaluation Mar 2016 , Good Volume > 2.00 L, Hypercalciuria (> 200mg), High Citrate - 09/27 Good volume, high citrate, normal calcium with medication, mild elevated oxalate, high sodium Prior treatment(s) include - ureteroscopy, observation 07/21 , medical management, with allopurinol, with thiazides 07/22 2.5 IND, 100mg Vit B6 01/21 continue medications Prior imaging includes a renal ultrasound December 2015 , showing radiodense stone(s), bilaterally, < 5 mm, on the right, lower pole, mid pole, < 5 mm, on the left, mid pole - Mar 2016 , a renal ultrasound small stone on right side. Not seen on KUB. - 07/21 , a renal ultrasound, showing no evidence of stones 07/22 , a renal ultrasound, showing radiodense stone(s), bilaterally 3 x 4mm stones each side 01/21 , a renal ultrasound, , showing no evidence of stones 07/23 , a renal ultrasound no evidence of stones. - 07/24 renal ultrasound bilateral twinkle artifact, 07/26 renal ultrasound bilateral small stones, - 02/25 renal ultrasound small bilateral echogenic foci - 05/29 renal ultrasound small bilateral foci UA today shows 6.0-7.0, high specific gravity suggestive of relative dehydration. Current therapeutic plan will be continue with medical therapy [facility] Medical History Headache, migraine History of kidney stones Erectile dysfunction Irritable bowel syndrome Hyperlipidemia GERD (gastroesophageal reflux disease) Microscopic hematuria Enlarged prostate without lower urinary tract symptoms (luts) Nocturia Lower urinary obstructive symptom Surgical History History of surgery Social History Alcohol intake: never Review of Systems Const Denies chills and Denies fever(s) Card Reports no additional complaints and Denies syncope Resp Denies cough GI Denies abdominal pain and Denies heartburn Reports as per HPI and Denies change in libido Neuro Denies syncope Psych Denies change in libido Endo Denies change in libido Physical Exam Const General: cooperative, healthy appearing, comfortable and no acute distress Orientation/consciousness: patient oriented x3 HEENT Face and sinus: Yes normal facial exam Mouth: moist mucous membranes Neck Neck: Yes normal visual inspection, Yes full ROM and Yes trachea midline Chest Chest palpation & inspection: normal inspection of the chest Resp Effort & Inspection: normal respiratory effort, able to speak in complete sentences and no respiratory distress GI Inspection: Yes normal to inspection Back/Spine/Pelvis Cervical Spine: normal cervical lordosis Thoracic/Lumbar Spine: thoracic and lumbar spine normal to inspection Skin General skin exam: no rashes or lesions noted Neuro General: patient oriented x3, gait normal, tone normal and moves all extremities Extrem General: Yes normal to inspection and Yes capillary refill normal Assessment & Plan Assessment & Plan (1) Nephrolithiasis: Code(s): N20.0 - Calculus of kidney Category: Medical Plan Twelve month follow-up renal ultrasound Orders: Orders US renal BI 12 Months N20.0 - Calculus of kidney Medications: New vitamin E 268 mg PO DAILY 90 caps 1RF 90 days R43.2 - Parageusia pentoxifylline ER administer with meals 400 mg PO BID 180 tabs 1RF 90 days R43.2 - Par[facility] Refilled indapamide 2.5 mg PO QAM 90 tabs 3RF 90 days N20.0 - Calculus of kidney allopurinol 100 mg PO DAILY 90 tabs 3RF 90 days N20.0 - Calculus of kidney pyridoxine (vitamin B6) 50 mg PO DAILY 90 tabs 3RF 90 days N20.0 - Calculus of kidney Patient Instructions: This note is constructed using voice recognition software. While every effort has been made to ensure accuracy welfare service aide errors may have been included. Imaging studies, laboratory and physical exam results were discussed and reviewed in detail. No major barriers to patient understanding were identified. An opportunity to ask questions regarding the treatment plan was provided. All questions were answered. The patient expressed understanding and agreement with the above treatment plan. The patient is aware they should contact our office by phone for worsening of their current condition or the appearance of new urologic symptoms. Compliance is encouraged with any medications and followup testing that is ordered. It is a privilege to participate in the urologic care of your patient. If you have any questions or concerns regarding treatment for the above conditions, or other urologic issues, please do not hesitate to contact me. The office telephone contact is [phone]. Sincerely, Dr Pierce Sarah MD, [facility] - Urology Compassionate Specialist Care for the Genitourinary System Coding Level of Care Code Est Pt Level 4 (09915) Complex EM visit Add On G2211 Diagnoses Nephrolithiasis N20.0
--- OUTSIDE RECORDS SUMMARY | 2025-06-10 10:59 | XMS_ITS | Clinical Summary ---
Author Organization [facility] Address [address] [place] [address] Care Team Providers Care Plug Paster Name Role Phone Christi Jeong MD Primary [...] Encounters Date Type Department Care Team Description 04/12/2025 Scanned Document [facility] [address] [place] [phone] Stiven Elias DO 03/22/2025 Scanned Document [facility] [address] [facility], [address] [place] [phone] Stiven Elias DO 03/18/2025 9:30 AM EDT Office Visit [facility] [address] [place] [phone] Stiven Elias DO Oropharyngeal cancer (HCC) (Primary [...] 03/18/2025 9:20 AM EDT Plan of Treatment Health Maintenance [...] patient's age to complete this topic Insurance Care Teams Plug Paster Relationship Specialty Start Date End Date Christi Jeong MD PCP - General Family Medicine 09/03/23
--- OUTSIDE RECORDS SUMMARY | 2025-06-10 10:59 | XMS_ITS | Clinical Summary ---
Author Organization [facility] Address [address] [place] [address] Phone Care Team Providers Care Salesperson Wigs Name Role Phone Christi Jeong MD Primary Care Provider [phone] Allergies Active Allergy Reactions Criticality Noted Date Comments Pilocarpine Other,Nausea And Vomiting Low 02/14/2022 Other reaction(s): Other (See Comments) Medications allopurinoL (ZYLOPRIM) 100 mg tablet Take 1 tablet (100 mg total) by mouth. Active cyanocobalamin, vitamin B-12, (VITAMIN B-12 ORAL) Take by mouth. Active ibuprofen (ADVIL,MOTRIN) 600 mg tablet 06/19/20 22 Active indapamide (LOZOL) 2.5 mg tablet TAKE 1 TABLET ORALLY EVERY MORNING FOR 90 DAYS Active diclofenac (VOLTAREN) 1 % topical gel Apply 4 g topically. 02/22/20 22 Active omeprazole (PriLOSEC) [address] capsule Take 1 capsule (20 mg total) by mouth. 03/02/20 21 Active oxyCODONE (ROXICODONE) 5 mg immediate release tablet Take 1 tablet (5 mg total) by mouth every 4 (four) hours. Max Daily Amount: 30 mg 12/01/19 22 Active pantoprazole (PROTONIX) 40 mg EC tablet Take 1 tablet (40 mg total) by mouth daily. 02/03/20 24 Active pilocarpine (SALAGEN) 5 mg tablet Take 1 tablet (5 mg total) by mouth. 01/05/20 Active pyridoxine (B-6) 100 mg tablet Take 1 tablet (100 mg total) by mouth. Active sodium,potassiu m,mag sulfates (SUPREP) 17.5-3.13-1.6 gram recon soln bowel prep kit oral solution 11/27/19 Active fluocinolone acetonide oiL 0.01 % drops 3 DROPS IN EAR TWO TIMES A DAY NEEDED FOR ITCHING 09/28/19 25 Active neomycin-polymy ivon-dexamethame thasone (POLYDEX) 3.5 mg/g-10,000 unit/g-0.1 % ointment APPLY TO EXTERNAL EAR TWICE DAILY NEEDED 11/20/19 25 Active sildenafiL (VIAGRA) 50 mg tabletIndicatio ns:Erectile dysfunction, unspecified erectile dysfunction type TAKE 1 TABLET (50 MG TOTAL) BY MOUTH IF NEEDED FOR ERECTILE DYSFUNCTION. 10 tablet 12/26/19 25 Active buPROPion XL (WELLBUTRIN XL) 150 mg 24 hr tablet TAKE 1 TABLET BY MOUTH EVERY DAY 90 tablet 1 12/25/19 25 Active ubrogepant (Ubrelvy) 100 mg tabletIndicatio ns:Chronic migraine without aura without status migrainosus, not intractable Take 1 tablet (100 mg total) by mouth 1 (one) time each day if needed for migraine. 30 tablet 02/24/20 25 Active propranolol LA (INDERAL LA) 60 mg 24 hr capsuleIndicati ons:Chronic migraine without aura without status migrainosus, not intractable TAKE 1 CAPSULE BY MOUTH EVERY DAY 90 capsule 1 06/07/20 25 Active traZODone (DESYREL) 50 mg tablet TAKE 1 TABLET BY MOUTH EVERYDAY AT BEDTIME 90 tablet 1 06/07/20 25 Active traZODone (DESYREL) 50 mg tablet Take 1 tablet (50 mg total) by mouth at bedtime. 90 tablet 1 11/28/19 25 025 Discontinued propranolol LA (INDERAL LA) 60 mg 24 hr capsuleIndicati ons:Chronic migraine without aura without status migrainosus, not intractable Take 1 capsule (60 mg total) by mouth 1 (one) time each day. Do not crush, chew, or split. 90 capsule 1 01/07/20 25 025 Discontinued Active Problems Problem Noted Date Diagnosed Date Bilateral hearing loss 12/23/2024 Cervicalgia 07/08/2024 Esophageal reflux 03/27/2024 Irritable bowel disease 03/27/2024 Right groin hernia 03/27/2024 Mild major depression ([facility] V24) 03/04/2024 Tinnitus 01/07/2024 G tube feedings ([facility] V24, [facility] V28) 03/10 Kidney stones 02/14/2022 Primary squamous cell carcin viry of throat ([facility] V24, [facility] V28) 02/07/2022 Overview (10/09/2023): hpv + 06/09/21 Primary squamous cell carcin viry of throat ([facility] V24, [facility] V28) 02/07/2022 Overview (03/27/2024): hpv + 06/09/21 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 ([facility] V24, [facility] V28) 07/04/2021 Overview (10/09/2023): T2N2M0; HPV + T2N2M0; HPV + Chronic pain of right inguinal region 06/02/2021 [place] (obstructive sleep apnea) 08/17/2020 Overview (03/27/2024): [facility] Home Sleep Apnea Test: Date 08/10/2020; Wt [...] - 04/08/2025 11:59 PM EDT Hospital Encounter [facility] [address] [place] [address] Faith Lowe, [facility] [employer] Malignant neoplasm of oropharynx, unspecified ([facility] V24, [facility] V28); Dysphagia, pharyngeal phase Discharge Disposition: Home [...] :Procedure: COLONOSCOPY; Surgeon: Nirmal Longo MD; Location: [facility] ENDOSCOPY; Service: Gastroenterology; Laterality: N/A; UPPER GASTROINTESTINAL ENDOSCOPY 01/24/2024 N/A PROCEDURE:UPPER GASTROINTESTINAL ENDOSCOPY;COMMENT:Procedure: UPPER ENDOSCOPY-EGD; Surgeon: Nirmal Longo MD; Location: [facility] ENDOSCOPY; Service: Gastroenterology; Laterality: N/A; Medical History Medical History Date Comments Cancer ([facility] V24, [facility] V28) 2020 DX:Cancer (HCC) Migraine headache DX:Migraine he adache Inguinal hernia DX:Inguinal delmy ia Nephrolithiasis DX:Nephrolithias is Head and neck cancer ([facility] V24, [facility] V28) DX:Head and neck cancer (HCC);COMMENT:chemo and [...] - [place] [address] [place] [address] Christi Jeong MD [address] [place] [address] 07/14/2025 8:40 AM EST Office Visit [facility] [address] [place] [address] Mery Marrufo, BEN [address] [place], [place] [id number] Health Maintenance Due Date Last Done Comments [...] AM EDT Malignant neoplasm of oropharynx, unspecified ([facility] V24, [facility] V28) Dysphagia, pharyngeal phase LIPID PANEL Routine [...] recommendations. -------- FINAL REPORT -------- Dictated By: Satihsh Fuentes Dictated Date: 04/08/2025 17:28 ET Assigned Physician: Sathish Fuentes Reviewed and Electronically Signed By: Sathish Fuentes Signed Date: 04/08/2025 17:33 ET Workstation ID: [id number] Transcribed By: Self Edit Transcribed Date: 04/08/2025 [...] Signed Date: 04/08/2025 17:33 ET Workstation ID: [id number] Transcribed By: Self Edit Transcribed Date: 04/08/2025 17:28 ET Stiven Mccord MD IM FLUOROSCOPY PROCEDURES Fi nal Result * (ABNORMAL) Lipid panel (12/24/2024 8:33 AM EDT) Cholesterol 179 0 - 200 mg/dL LAB CHEMISTRY METHOD 12/24/2024 11:55 AM EDT [facility] Triglycerides 171(H) <150 mg/dL LAB CHEMISTRY METHOD 12/24/2024 11:55 AM EDT [facility] HDL 43 32 - 70 mg/dL LAB CHEMISTRY METHOD 12/24/2024 11:55 AM EDT [facility] LDL Calculated 102 50 - 130 mg/dL LAB CHEMISTRY METHOD 12/24/2024 11:55 AM EDT [facility] VLDL Cholesterol Tuan 34.2 mg/dL LAB CHEMISTRY METHOD 12/24/2024 11:55 AM EDT [facility] Comment:No established refer ence range. Blood Venous blood specimen / Unknown Venipuncture / Unknown 12/24/2024 8:33 AM EDT 12/24/2024 8:33 AM EDT Christi Jeong MD LAB BLOOD ORDERABLES Final Result [facility] [address] [place] [address], [place] [phone] * Depression Screening (07/23/2023) Pathologist [facility] Depression Screening abstracted Historical Provider HEALTH MAINTENANCE Final Result * Hepatitis C Screening (07/24/2022) Pathologist [facility] Hepatitis C Screening abstracted Historical [facility] Final Result from Last 3 Months or Most Recently Relevant to Health Maintenance Insurance [place] Member Subscriber Plan / Payer (Ef fective 2024-Present) Name:NOMI SALAS Relation to Subscriber:Self Name:Nomi Salas Payer ID:[id number] Group ID:Not on file Type:Not on file Address: [employer] [address] [place] [address] [facility] Care Teams Salesperson Wigs Relationship Specialty Start Date End Date Christi Jeong MD [address] [place] [address] PCP - General Internal Medicine 01/10/22
--- OUTSIDE RECORDS SUMMARY | 2025-06-10 10:59 | XMS_ITS | Encounter Summary ---
Author Organization [facility] Address [address] [place] [address] Care Team Providers Care Freight Brake Operator Name Role Phone Christi Jeong MD Primary Care Provider [phone] Encounter Details Date Type Department Care Team (Late st Contact Info) Description 03/22/2025 Scanned Document [facility] [address], [address] [place] [id number] Stiven Elias, [address] [place], [place] [id number] Social History Tobacco Use Types Packs/Day Years Used Date Smoking Tobacco: Never Assessed Sex and Gender Information Value Date Recorded Sex Assigned at Not on file Legal Sex Male 9:57 AM EST Gender Identity Not on file Sexual Orientation Not on file documented as of this encounter Plan of Treatment Not on file documented as of this encounter Visit Diagnoses Not on filedocumented in this encounter Care Teams Freight Brake Operator Relationship Specialty Start Date End Date Christi Jeong MD PCP - General Family Medicine 09/03/23 documented as of this encounter
--- OUTSIDE RECORDS SUMMARY | 2025-06-10 10:59 | XMS_ITS | Encounter Summary ---
Author Organization [facility] Address [address] [place] [address] Care Team Providers Care Pipe Smoker Machine Operator Name Role Phone Christi Jeong MD Primary Care Provider [phone] Encounter Details Date Type Department Care Team (Late st Contact Info) Description 04/12/2025 Scanned Document [facility] [address] [place] [phone] Stiven Elias [address] [place] [address] Social History Tobacco Use Types Packs/Day Years [...] on filedocumented in this encounter Care Teams Pipe Smoker Machine Operator Relationship Specialty Start Date End Date Christi Jeong MD PCP - General Family Medicine 09/03/23 documented as of this encounter
--- OUTSIDE RECORDS SUMMARY | 2025-06-10 10:59 | XMS_ITS | Clinical Summary ---
Author Organization [facility] Address [address] [place] [address] Care Team Providers Care Branch Coordinator Name Role Phone Christi Jeong MD Primary [...] kidney stones 06/05/2013 Overview: Dr. Trevino at [facility] urology Migraine 11/14/2007 Immunizations Name Administration Dates [...] Advance Directives For more information, please contact: [phone] Latest Code Status on File Code Status Date Activated Date Inactivated Comments Full Code 01/24/2024 12:04 PM 01/24/2024 6:48 PM This code status was ascertained in the following way: discussion with patient. Care Teams Branch Coordinator Relationship Specialty Start Date End Date Christi Jeong MD PCP - General Internal Medicine 01/10/22
== END 2025-06-10 10:18 | disposition home or self-care (01) ==
LOC: HO.HUSH 09:44
PROVIDERS: PCP Internal Medicine; Visit Provider Urology
DX: N20.0 Calculus of kidney (principal)
CPT/HCPCS: 99214